=== PATIENT | male | born 1965 | race Caucasian/White ===

== ENCOUNTER 2020-02-05 09:12 | Emergency (ER) | payer SELFPAY ==
[2020-02-05 09:16] VITALS: BP 142/98; PULSE 90; RESP 18; TEMP 36.5; O2SAT 97; BMI 22.4
--- NOTE | 2020-02-05 09:21 | ED_ITS ---
HPI - Extremity Injury (Upper) General: Chief Complaint: Wound/Laceration Stated Complaint: r hand swelling Time Seen by Provider: 02/05/20 09:20 History of Present Illness: HPI narrative: 54-year-old male presents to the ER with complaint of right hand swelling. He is a swollen area at the third and fourth MP joints there is an eschar present at the center he states he did get the eschar off and get a little bit of clear serous-like drainage previously to been purulent. Is initially seen in [facility] emergency room and had an x- ray done there was told there is no fracture then he followed up 4 days later at urgent care and was given a shot of Rocephin and started on Bactrim. He initially did this 3 weeks ago. He was hit in the dorsum of the hand by the edge of a piece to lag iron that dropped. There was no concern for retained foreign body. He denies any fever sweats or chills is not otherwise been sick recently denies any respiratory symptoms MD complaint: injury to: left and hand Other injuries: none Handedness: right Place: work Severity: mild Relieving factors: cold therapy Exacerbating factors: movement of extremity Context: direct blow Associated symptoms: Reports no associated symptoms Review of Systems Const: Denies: fever(s), chills, body aches, change in appetite, fatigue or malaise ENMT: Denies: throat pain, ear or mastoid pain, nasal discharge or nasal congestion Card: Denies: chest pain, edema, dyspnea on exertion or orthopnea Resp: Denies: dyspnea, productive cough or non-productive cough GI: Denies: abdominal pain, nausea, vomiting, hematemesis, coffee ground emesis, diarrhea, constipation, bloating, hematochezia or melena : Denies: flank pain, dysuria, urinary frequency or urinary urgency Skin/Breast: Denies: rash or pruritus PFSH ED PFSH: Medical History (Updated 02/05/20 @ 13:03 by Jigar Kidd DO) No pertinent past medical history Surgical History (Updated 02/05/20 @ 13:03 by Jigar Kidd DO) Hx of appendectomy Social History (Updated 02/01/20 @ 11:54 by Sindy Ayala LPN) Smoking and tobacco status: current every day smoker Alcohol intake: current Physical Exam Const: COMMON NORMALS: no acute distress GENERAL APPEARANCE: cooperative and comfortable ORIENTATION/CONSCIOUSNESS: Yes awake, Yes oriented to person, Yes oriented to place and Yes oriented to time HENMT: COMMON NORMALS: normocephalic, atraumatic and hearing grossly normal bilaterally HEAD & SCALP: normocephalic and atraumatic Neck/C-Spine: COMMON NORMALS: no JVD Lymph: LYMPHATIC: no lymphadenopathy noted and no lymphedema noted Resp: COMMON NORMALS: normal respiratory effort, No retractions, No use of accessory muscles and clear to auscultation bilaterally AUSCULTATION: clear to auscultation bilaterally Cardio: COMMON NORMALS: no JVD, regular rate, regular rhythm and No murmurs present (Cardio) RATE: regular rate RHYTHM: regular rhythm GI: COMMON NORMALS: Soft to palpation and No hepatosplenomegaly present AUSCULTATION: Yes normoactive bowel sounds PALPATION: Yes Soft to palpation, No Tenderness to palpation present (GI), No Guarding due to palpation present (GI) and Yes No hepatosplenomegaly present Extremity: COMMON NORMALS: normal to inspection, capillary refill normal, no clubbing, cyanosis or edema, no calf tenderness and no pedal edema NARRATIVE EXTREMITY EXAM: Moderately swollen area on the dorsum of the hand at the third and fourth MP joints. There is no active drainage area was cleansed with alcohol wipes and then attempted to aspirate in the area the most obvious fl uctuance was not able to get any fluid back for culture. Neuro: SENSORIUM/ORIENTATION: Yes oriented to person, Yes oriented to place and Yes oriented to time Course Vital Signs: Vital signs: Vital Signs Temperature 97.7 F 02/05/20 09:16 Pulse Rate 83 02/05/20 11:47 Respiratory Rate 20 H 02/05/20 11:47 Blood Pressure 147/84 02/05/20 11:47 Pulse Oximetry 96 02/05/20 11:47 MDM - Extremity Injury (Upper) MDM Narrative: Medical decision making narrative: Continue Bactrim until gone if has any worsening or change symptoms follow-up use pain medications as needed. At this point does not look actively infected I think the Bactrim is taking care of it the drainage she has had is been serous I cannot really aspirate anything out of it and he has no axillary epitrochlear lymph nodes the CRP is slightly elevated I suspect that is inflammatory if he has worsening symptoms or drainage return Lab Data: Labs: Lab Results 02/05/20 02/05/20 Range/Units 10:08 10:08 WBC 7.9 (4.0-10.0) 10^3/ uL RBC 4.53 (4.1-5.3) 10^6/u L Hgb 13.6 (11.7-16.6) g/dL Hct 41.4 L (42.0-52.0) % MCV 91.4 (80-94) fL MCH 30.0 (28.0-34.0) pg MCHC 32.9 (30.0-36.0) g/dL RDW 15.3 H (12.1-15.1) % Plt Count 426 H (130-400) 10^3/c mm MPV 9.6 (7.4-10.4) fL Neut % (Auto) 70.1 % Lymph % (Auto) 18.5 % Morrow % (Auto) 8.9 % Eos % (Auto) 1.6 % Baso % (Auto) 0.5 % Neut # (Auto) 5.56 (1.8-7.7) 10^3/u L Lymph # (Auto) 1.5 (0.8-4.8) 10^3/u L Morrow # (Auto) 0.7 (0.2-0.9) 10^3/u L Eos # (Auto) 0.1 (0.0-0.8) 10^3/u L Baso # (Auto) 0.0 (0.0-0.1) 10^3/u L Nucleated RBC % (a uto) 0 % Nucleated RBCs # 0.0 /100WBC C-React Prot High Sens 2.910 H (0.0-0.3) mg/dL Discharge Plan Discharge Patient Disposition: Home Clinical Impression: Crush injury of hand Condition: Stable Prescriptions: New tramadol 50 mg tablet 50 mg PO Q6H PRN (Reason: pain) Qty: 20 RF: 0 No Action ibuprofen 200 mg Tablet 1,600 mg PO BID PRN (Reason: Pain) RF: 0 sulfamethoxazole-trimethoprim 800-160 mg tablet 1 tab PO BID RF: 0 Discharge Orders: Discharge Order (Routine); Ordered 02/05/20 Ordered By: Jigar Kidd Patient Instructions: Crush Injury, Wound Care (General) Activity Restrictions/Additional Instructions: Complete antibiotics previously prescribed. Use pain medications prescribed as needed follow-up with primary care doctor in the next 2 to 3 days sooner if you have any worsening problems. Return to the emergency room if you develop any fever or sudden change in swelling. Discharge Date/Time: 02/05/20 11:48 Coding Level of Care Code ED [employer] Attendant for Hamilton Neumann
--- NOTE | 2020-02-05 10:00 | XRR_ITS ---
PROCEDURE INFORMATION: Exam: XR Right Hand Exam date and time: 02/05/2020 10:20 AM Age: 54 years old Clinical indication: Pain; Swelling; Hand; Right; Additional info: Hand pain and swelling TECHNIQUE: Imaging protocol: XR Right hand. Views: 3 or more views. COMPARISON: No relevant prior studies available. FINDINGS: Bones/joints: No fracture. No dislocation. Mild degenerative changes. Soft tissues: There is nonspecific superficial soft tissue swelling involving the dorsum of the hand as indicated on the lateral view. No radiopaque soft tissue foreign body. XR/XR hand RT min 3V* [id number] IMPRESSION: 1. Nonspecific soft tissue swelling. 2. No acute osseous abnormality.
[2020-02-05 10:13] LABS: Basophils % 0.5 %; Eosinophils # 0.1 10^3/uL (0.0-0.8); Eosinophils % 1.6 %; Hematocrit 41.4 % (42.0-52.0); Hemoglobin 13.6 g/dL (11.7-16.6); Lymphocytes # 1.5 10^3/uL (0.8-4.8); Lymphocytes % 18.5 %; Mean Corpuscular HGB Conc 32.9 g/dL (30.0-36.0); Mean Corpuscular Volume 91.4 fL (80-94); Mean Platelet Volume 9.6 fL (7.4-10.4); Monocytes # 0.7 10^3/uL (0.2-0.9); Monocytes % 8.9 %; Neutrophils # 5.56 10^3/uL (1.8-7.7); Neutrophils % 70.1 %; Nucleated Red Blood Cells % 0 %; Platelet Count 426 10^3/cmm (130-400); Red Blood Count 4.53 10^6/uL (4.1-5.3); Red Cell Distribution Width 15.3 % (12.1-15.1); White Blood Count 7.9 10^3/uL (4.0-10.0)
[2020-02-05 11:47] VITALS: BP 147/84; PULSE 83; RESP 20; O2SAT 96
== END 2020-02-05 11:48 | disposition home or self-care (01) ==
PROVIDERS: Emergency Provider Family Medicine
DX: S67.21XA Crushing injury of right hand, initial encounter (principal); W23.0XXA Caught, crushed, jammed, or pinched between moving objects, initial encounter; F17.210 Nicotine dependence, cigarettes, uncomplicated
CPT/HCPCS: 12345; 36415; 73130; 85025; 86141; 99281; 99283

== ENCOUNTER 2021-09-18 11:44 | Outpatient (CLI) | payer OTHER, SELFPAY ==
--- NOTE | 2021-09-18 17:39 | ONC CON_ITS ---
Dr. Still New Patient Note Patient: Derek Tyler Unit #: [id number]: [id number] Dicatated By: Allen Still M.D.Date of Visit: Sep 18, 2021 Onc MED New Patient/Consult Referring Physician: Ignacio Yoon Chief Complaint: Esophageal cancer. 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 He had presented with difficulty swallowing which had progressively worsened over period of several months. He had surgical consultation with Dr. Ignacio Yoon on 08/07/2021. His EGD on 08/14/2021 showed what appeared to be a mass along the left anterior portion of the GE junction. Other findings included a hiatal hernia and duodenitis. Biopsies from the antrum and body of the stomach and the duodenal bulb were benign. Biopsy from the distal esophagus showed invasive moderately to poorly differentiated adenocarcinoma. The HER-2/ezequiel was negative (1+ by IHC). Staging PET/CT on 08/29/2021 showed FDG avid thickening of the distal esophageal wall up to 1.4 cm, maximal SUV 7.65. There was also marked increase of metabolic activity involving the gastric mucosa, SUV 6.88 and in a 1.5 cm gastrohepatic lymph node, SUV 6.67. A 1.5 cm right supraclavicular lymph node also had increased FDG activity with SUV 5.80 and a right hilar lymph node measuring 1.7 x 1.0 cm had increased activity with SUV 5.80. Pulmonary micronodules were felt to be indeterminate. There were extensive FDG avid lytic lesions in the right hemipelvis consistent with metastatic involvement. Incidentally noted was uptake in the left superior alveolar ridge with adjacent maxillary sinus inflammation, concerning for infection. He had medical oncology consultation with Dr. Joaquina Galicia on 09/03/2021. He was recommended to have a trial of systemic therapy with a chemotherapy/immunotherapy combination. He was scheduled for bone biopsy of the right pelvis and for placement of Port-A-Cath venous access device. Additional pathologic studies were requested, including PD-L1 expression and MSI testing, but those results have not been reported. The Port-A-Cath was placed earlier this week. His bone biopsy was positive for metastatic adenocarcinoma consistent with the esophageal primary. He is seen here today because he would prefer to get his treatment closer to home, if possible. He continues to have difficulty swallowing, severe enough that he is having to blend all of his food, as he can pretty much swallow only liquids now. His weight is down 15 pounds. He has had some decline in his energy, but he is still working and he has normal activity. ECOG score is 0. He has not had fever. He has had 1 or 2 episodes of night sweating. He does complain that he has an infected upper left tooth, and he has associated sinus congestion/headache. He does not have much cough, and he says his breathing is okay. He does not complain of chest pain. He does have nausea, but no vomiting. He has having pain in his epigastric area. Bowel and bladder function have been okay. He is having pain in the posterior right hip area. He also has pain in his right knee and right calf area. He does have chronic headache. He does not complain of dizziness. He is having some numbness in his fingertips. Past Medical History: He has a history of borderline diabetes and he has a history of COVID-19 virus infection in 2021. Past Surgical History: He underwent EGD with esophageal and gastric biopsies on 08/14/2021. His only other surgery was an appendectomy in 2011. Medications: Ibuprofen 3 Tablet (of 200 mg) Oral q 6 hours PRN Allergies: No Known Allergies. Social History: Mr. Tyler is . He has a history of smoking 2 packs of cigarettes daily for 40 years. Alcohol use reported at 4 beers daily. Family History: Father with prostate cancer at age 76. He also had polycythemia rubra vera. Mother with lung cancer at age 64. One brother and one sister are in good health. Review Of Symptoms: Constitutional - There has been some decline in his energy, but he is still working. He has limited oral intake, as always his food has to be blended so that he can drink it. His weight is down 15 pounds. He has not had fever. He has had 1 or 2 episodes of night sweating. ECOG score is 0, Eyes - No change in vision, ENMT - He has hearing loss. No tinnitus. He has sinus congestion and he has an infected upper tooth on the left side. He is not able to swallow solid foods, Hematologic/Lymphatic - No abnormal bruising but he says he bleeds like a stuck pig, Respiratory - He says his breathing is okay, and he does not have much cough. No pleuritic pain or hemoptysis, Cardiovascular - No angina pain. No palpitations, Gastrointestinal - He has nausea, but no vomiting. He has pain in the epigastric area. No diarrhea or constipation. No blood in the stool or black stools, Genitourinary (M) - No dysuria or hematuria. No urinary frequency. No urgency or incontinence, Musculoskeletal - He is having pain in the posterior right hip area and right leg. He also has pain in the right knee and sometimes in the right calf, Integumentary - No skin rash or other skin changes, Neurologic - He has chronic headache. No dizziness. He has numbness in his fingertips. No other focal neurologic symptoms, Psychiatric - No anxiety or depression. He is having difficulty sleeping. Vital Signs: Performed on Sep 18, 2021 12:58: 6, 5, 22.35, 1.96 sq.m, 72 in, 96 %, 85 /min, 18 /min, 107/72 mm(hg), 98.5 F, and 164.8 lbs (HIGH). Physical Examination: Constitutional - He looks pretty good generally, Eyes - Sclerae nonicteric. Conjunctivae clear, ENMT - There is an infected upper left molar tooth. There are no other lesions noted in the oral cavity, Neck - No mass or thyromegaly, Hematologic/Lymphatic - No cervical, clavicular, or axillary adenopathy, Respiratory - Lungs are clear with diminished air movement bilaterally, Cardiovascular - Heart rhythm is regular. There is no murmur, gallop, or rub noted, Abdomen - Soft with mild tenderness in the upper abdomen. Liver and spleen are not enlarged. There is no abdominal mass or ascites noted and there is no inguinal adenopathy, Back/Spine - No spine or CVA tenderness noted, Extremities - No edema. Posterior tibial pulses are palpable bilaterally, Integumentary - No rashes. No suspicious skin lesions noted, Neurologic - No focal neurologic deficits noted. Problem List: 1. 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 2. He has had borderline diabetes, diet controlled. 3. History of COVID-19 virus infection in June 2021. 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 His tumor was found to be negative for overexpression of HER-2/ezequiel. PD-L1 expression and MSI testing were requested, but those results have not been reported. The EGD and PET/CT findings and the biopsy results were reviewed with the patient and his family. We discussed the clinic complications. He is aware that he has cancer involving the distal esophagus and that it is metastatic, thus inoperable and incurable. With HER-2/ezequiel negative disease, the recommended treatment is a chemotherapy/immunotherapy combination, as noted by Dr. Galicia. My suggestion would be to use a modified FOLFOX chemotherapy regimen in combination with nivolumab on a 2-week dosing schedule. I again reviewed potential side effects with both the chemotherapy regimen and the immunotherapy. He will be scheduled to return for the first cycle of treatment subject to verification of insurance coverage. In addition, with the metastatic bone involvement, he will be recommended to begin monthly denosumab injections. I also will follow through with the additional pathology studies, which will include next generation sequencing along with PPD-L1 expression and MSI testing. In the meantime, he will be given prescriptions for Augmentin for the dental infection and he will start pantoprazole 40 mg daily. Signed By: Allen Still M.D. <<Signature on File>>
== END 2021-09-18 11:45 | disposition home or self-care (01) ==
PROVIDERS: Visit Provider Internal Medicine Medical Oncology
DX: C15.5 Malignant neoplasm of lower third of esophagus (principal); R73.03 Prediabetes; F17.210 Nicotine dependence, cigarettes, uncomplicated; Z79.899 Other long term (current) drug therapy; Z86.16 Personal history of COVID-19
CPT/HCPCS: 99205

== ENCOUNTER 2021-09-24 07:56 | Outpatient (CLI) | payer OTHER, SELFPAY ==
[2021-09-24 08:43] LABS: Basophils % 0.4 %; Eosinophils # 0.2 10^3/uL (0.0-0.8); Hematocrit 37.4 % (42.0-52.0); Hemoglobin 13.1 g/dL (11.7-16.6); Lymphocytes # 1.3 10^3/uL (0.8-4.8); Lymphocytes % 19.9 %; Mean Corpuscular Hemoglobin 35.2 pg (28.0-34.0); Mean Corpuscular Volume 100.5 fl (80-94); Mean Platelet Volume 9.6 fL (7.4-10.4); Monocytes # 0.7 10^3/uL (0.2-0.9); Neutrophils # 4.43 10^3/uL (1.8-7.7); Nucleated Red Blood Cells % 0 %; Platelet Count 317 10^3/cmm (130-400); Red Blood Count 3.72 10^6/uL (4.1-5.3); Red Cell Distribution Width 12.7 % (12.1-15.1); White Blood Count 6.7 10^3/uL (4.0-10.0)
[2021-09-24 08:56] LABS: Alanine Aminotransferase 12 U/L (0-41); Albumin Level 3.9 g/dL (3.5-5.2); Alkaline Phosphatase 77 IU/L (40-130); Anion Gap 14.3 (5-19); Aspartate Amino Transferase 11 U/L (0-40); Blood Urea Nitrogen 13 mg/dL (6-20); Calcium 9.1 mg/dL (8.5-10.5); Carbon Dioxide 24 mmol/L (22-29); Chloride 98 mmol/L (98-107); Globulin 2.3 g/dL (1.3-4.6); Glomerular Filtration Rate 171.4 mL/min (90-130); Glucose 96 mg/dL (65-115); Osmolality Calculated 274 mOsm/kg (285-295); Potassium 4.3 mmol/L (3.5-5.1); Sodium 132 mmol/L (136-145); Total Bilirubin 0.3 mg/dL (0.15-1.2); Total Protein 6.2 g/dL (6.6-8.7)
[2021-09-24 09:32] LABS: Hepatitis A Antibody IgM Non-Reactive (Nonreactive); Hepatitis B Core AB, Total Non-Reactive (Nonreactive); Hepatitis B Surface AB 3.5 (11.5-1000); Hepatitis B Surface Antigen Non-Reactive (Nonreactive); Hepatitis C Virus Antibody Non-Reactive (Nonreactive)
[2021-09-24] MEDS: sodium chloride 0.9% 250 ML 75 ML IV (10:30)
[2021-09-24] MEDS: dextrose 5% 250 ML 75 ML IV (10:30)
[2021-09-24] MEDS: palonosetron 0.25 mg/5 mL SDV IV (10:30)
[2021-09-24] MEDS: diphenhydrAMINE 50 mg/mL SDV 1mL 25 MG IV (10:30)
[2021-09-24] MEDS: denosumab 120 mg SDV SUBCUT (10:30)
[2021-09-24] MEDS: acetaminophen 325 mg Tablet 650 MG PO (10:30)
== END 2021-09-24 07:57 | disposition home or self-care (01) ==
PROVIDERS: Visit Provider Internal Medicine Medical Oncology
DX: Z51.12 Encounter for antineoplastic immunotherapy (principal); C15.5 Malignant neoplasm of lower third of esophagus; C79.51 Secondary malignant neoplasm of bone; R13.10 Dysphagia, unspecified; E11.9 Type 2 diabetes mellitus without complications; Z79.899 Other long term (current) drug therapy; Z86.16 Personal history of COVID-19; Z93.1 Gastrostomy status
CPT/HCPCS: 80053; 85025; 86705; 86706; 86709; 86803; 87340; 96367; 96368; 96372; 96375; 96409; 96411; 96413; 96415; 96417; J0640; J0897; J1100; J1200; J2469; J7050; J9190; J9263; J9299

== ENCOUNTER 2021-09-26 10:45 | Outpatient (CLI) | payer OTHER, SELFPAY | END 2021-09-26 10:46 | disposition home or self-care (01) | PROVIDERS: Visit Provider Internal Medicine Medical Oncology | DX: Z45.2 Encounter for adjustment and management of vascular access device (principal) | CPT/HCPCS: 36591 ==

== ENCOUNTER 2021-10-01 09:45 | Day surgery (SDC) | payer OTHER, SELFPAY ==
[2021-09-30 15:45] VITALS: BMI 20.3
[2021-10-01] VITALS (16 sets, daily range): BP systolic 127–165; BP diastolic 81–95; PULSE 61–98; RESP 12–33; TEMP 36.2–36.6; O2SAT 92–100
[2021-10-01] MEDS: sodium chloride 0.9% 1,000 ML 30 ML IV (10:25)
--- NOTE | 2021-10-01 10:35 | ANES.PREANE2 ---
Pre-Anesthetic Assessment Height/Weight: Height 1.83 m Weight 68.039 kg Preop Diagnosis: esophageal ca Operation Date: 10/01/21 11:15 Proposed Procedures p egd 81020/peg tube 84949/Esophageal cancer C15.9(Not Applicable) - Magdi Kemp MD s PEG Tube Exchange(Not Applicable) - Magdi Kemp MD s poss Laparoscopic PEG Tube Placement(Not Applicable) - Magdi Kemp MD Familial anesthetic complications: None Was Beta Jose taken within 24 hours: N/A Was Clonidine taken within 24 hours: N/A Last intake: Intake Last Liquid Date 09/30/21 Last Liquid Time 20:00 Last Solid Date 09/30/21 Last Solid Time 18:00 Social Tobacco and No alcohol Exam alert, oriented x 3, clear to auscultation bilaterally and regular rate & rhythm Airway Submandibular: within normal limits Cervical ROM: within normal limits Mallampati: Class II Dentition: chipped Comments: Comments: Missing teeth High arched palate History/ROS No significant complaints Pulmonary Weakness with exertion after chemo CV/HEM None reported METS = 4 None reported Hepatic None reported GI Esophageal cancer Metabolic None reported Musc/skel None reported Neuropsych None reported Anesthetic Plan ASA status: 3 Anesthesia: Anesthesia Evaluation and MAC Other: We discussed risk and benefits of general anesthesia including PONV, sore throat (sometimes severe), corneal abrasion, positioning and peripheral nerve injuries, life threatening allergic reaction, post operative ICU admission requiring prolonged intubation, stroke, heart attack, , and rare incidences of recall. I discussed with the patient risks, goals, and benefits of MAC and general anesthesia. We discussed spectrum of MAC anesthesia including conversion to general as well as possibility of recall of intraoperative stimuli including discomfort/pain. Patient agrees to proceed with MAC. Risk of > 500 ml blood loss (7ml/kg in children): No Medications/Allergies Home Medications Medication Instructions Recorded Confirmed Last Taken Type ibuprofen 200 mg tablet 1,600 mg PO BID PRN 02/05/20 10/01/21 09/30/21 History sulfamethoxazole 800 1 tab PO BID 02/05/20 09/30/21 02/05/20 History mg-trimethoprim 160 mg tablet tramadol 50 mg tablet 50 mg PO Q6H PRN #20 tab 02/05/20 10/01/21 Unknown Rx morphine 10 mg/5 mL oral solution 5 mg PO Q4H PRN 09/30/21 09/30/21 Unknown History oxycodone 5 mg capsule 5 mg PO BID PRN 09/30/21 09/30/21 Unknown History pantoprazole 20 mg tablet,delayed 20 mg PO DAILY 09/30/21 09/30/21 Unknown History release (Protonix) prochlorperazine maleate 10 mg 10 mg PO Q4-5H PRN 10/01/21 10/01/21 09/30/21 History tablet (Compazine) Allergies Allergy/AdvReac Type Severity Reaction Status Date / Time No Known Allergies Allergy Verified 10/01/21 09:57 Current Medications Generic Name Dose Route Start Last Admin Trade Name Freq PRN Reason Stop Dose Admin Sodium Chloride 1,000 mls @ 30 mls/hr 10/01/21 10:15 10/01/21 10:25 Sodium Chloride 0.9% IV 10/02/21 10:14 30 mls/hr .Q24H EMELI Administration PFSH Anesthesia Medical History Esophageal cancer Surgical History Hx of appendectomy Social History Smoking and tobacco status: current every day smoker Alcohol intake: current Data Anesthesia Cardiac Studies: No Data to Display
[2021-10-01] MEDS: scopolamine 1.5 Patch 1 PATCH TRANSDERMA (10:41)
--- NOTE | 2021-10-01 10:51 | W.PM.OPSUD ---
Surgery/Procedure H&P Update DATE OF PROCEDURE: October 01, 2021 DATE H&P PERFORMED: 09/30/21 H&P UPDATE INFORMATION: I have reviewed H&P completed within last 30 days, I have examined patient prior to procedure and No changes to prior documentation PREOP DIAGNOSIS: esophageal ca PLANNED PROCEDURE: Operation Date: 10/01/21 11:15 Proposed Procedures p egd 42541/peg tube 27198/Esophageal cancer C15.9(Not Applicable) - Magdi Kemp MD s PEG Tube Exchange(Not Applicable) - Magdi Kemp MD s poss Laparoscopic PEG Tube Placement(Not Applicable) - Magdi Kemp MD
--- NOTE | 2021-10-01 13:06 | P.OP_ITS ---
Operative Report Date of procedure: October 01, 2021 Pre-op diagnosis: Metastatic esophageal cancer causing esophageal obstruction Post-op diagnosis: Obstructing esophageal cancer and GE junction beyond which the gastroscope could not be passed No evidence of liver metastasis or peritoneal carcinomatosis Procedure done: 1. Esophagoscopy 2. Laparoscopic placement of 22 [place] gastrostomy tube Pathology: none sent Surgeon: Magdi Kemp Anesthesia: General Condition: stable Disposition: PACU Procedure: The patient was taken to the operating room and intubated under general anesthes ia after IV antibiotic had been administered. The abdomen was prepped and draped in sterile manner. A bite block was placed and the gastroscope was introduced and advanced into the esophagus. At the GE junction there was an obstructing esophageal cancer noted beyond which the gastroscope could not be advanced. The stomach was filled with air using the gastroscope. Using a 15 blade infraumbilical curvilinear incision was made and using open Valladares technique the peritoneal cavity was entered and a 10 mm port was placed and 15 mm of pneumoperitoneum was created. A 10 mm 30 degree scope was introduced. The site for the planned gastrostomy tube was marked in the left upper quadrant. 4 separate T-fasteners were deployed to pull the anterior gastric wall against the abdominal wall. An introducer needle was passed through the abdominal wall between the T-fasteners into the gastric lumen, guidewire was passed and the introducer needle was removed. A dilator sheath was passed over the guidewire after the skin incision was extended using 11 blade and the inner dilator was removed. A 22 [place] gastrostomy tube was introduced into the gastric lumen as the peel-away sheath was removed and the balloon was inflated with 7 cc of saline. The T-fasteners were tightened against the skin using hemostats. The outer disc on the gastrostomy was sutured to the skin using 3-0 Prolene suture. The 10 mm port was removed and the fascia was closed using [id number] 0 Vicryl suture, subcutaneous tissues approximated using 3-0 Vicryl suture and skin was closed using running subcuticular 4-0 Monocryl suture and Dermabond. 10 cc of 0.5% Marcaine was infiltrated at the surgical site. The patient was extubated and transferred recovery room in stable condition.
--- NOTE | 2021-10-01 13:14 | SUR.PHASEI ---
1308 PT TO PACU 5 PT AWAKES , ORAL AIRWAY OUT, PT DOES NOT VERBALLY RESPOND, QUICKLY BACK TO SLEEP VSS ABDOMEN IS SOFT WITH PEG TUBE STITCHED IN PLACE AND UNCLAMPED WITH END OF TUBE IN GLOVE, BILAT SCDS ON.
[2021-10-01] MEDS: fentaNYL 50 mcg/mL INJ 2mL IVP ×2 (13:22→13:43)
--- NOTE | 2021-10-01 13:35 | ANE.PACU2 ---
Inpatient post-anesthesia follow up: Airway intact: Yes Vital signs: Temperature 97.2 F Pulse Rate 83 Respiratory Rate 21 Blood Pressure 145/88 Pulse Oximetry 98 Oxygen Delivery Me thod Simple Mask Oxygen Flow Rate 6 Fraction of Inspir ed Oxygen Hydration adequate: Yes Nausea and vomiting: No Pain level: 2 Mental status: Baseline
--- NOTE | 2021-10-01 13:49 | SUR.PHASEI ---
PT STATES PAIN IS BETTER, NOW, TUBE PULLS WITH ANY PATIENT MOVEMENT, TAPE APPLIED TO PEG TO SECURE IT TO SKIN SO THAT THE STITCHED AREA DOES NOT PULL. SEE EARLIER PAIN MEDS GIVEN.
== END 2021-10-01 14:45 | disposition home or self-care (01) ==
PROVIDERS: Visit Provider Surgery
PROC: 0DJ08ZZ Inspection of Upper Intestinal Tract, Via Natural or Artificial Opening Endoscopic (ICD-10-PCS; CPT 43235; principal; 2021-10-01 11:15)
PROC: (CPT 43246; 2021-10-01 11:15)
DX: C15.9 Malignant neoplasm of esophagus, unspecified (principal); C79.9 Secondary malignant neoplasm of unspecified site; Z92.21 Personal history of antineoplastic chemotherapy; F17.210 Nicotine dependence, cigarettes, uncomplicated; Q42.8 Congenital absence, atresia and stenosis of other parts of large intestine
CPT/HCPCS: 43246; J0690; J1100; J2405; J2704; J3010; J3490; J7030

== ENCOUNTER 2021-10-03 09:09 | Outpatient (CLI) | payer OTHER, SELFPAY ==
--- NOTE | 2021-10-03 09:37 | XR_ITS ---
WS: [id number] XR KUB [id number] REASON FOR EXAM: Z93.4 - Other artificial openings of gastrointestinal tra... FINDINGS: Large bore tubing overlying the left abdomen with the tip in the left epigastric region. Bowel gas pattern is unremarkable. Gas/air lucencies projected over the right upper quadrant. Similar lucencies are seen in the lateral left abdomen which may be in part within the abdominal wall. Similar but more equivocal lucencies are seen underlying the left hemidiaphragm. No urinary tract calculi. No mass identified. XR/XR KUB [id number] IMPRESSION: Large bore tubing overlying the abdomen. Gas/air lucencies that do not appear t o be contained within bowel as above. By history there was gastrostomy tube placement 2 days ago. The findings are co mpatible with expected postprocedure changes 2 days post procedure.
--- NOTE | 2021-10-03 11:35 | IR_ITS ---
WS: [id number] IR [place]dc [place] [id number] REASON FOR EXAM: G TUBE DYSFUNCTION/DYE INJECTION TO CHECK PEG TUBE FLUOROSCOPY TIME: 1min [id number] # OF SPOT FILMS: 2 FINDINGS: Small amount of water-soluble contrast was injected through the gastrostomy tube under fluoroscopic c ontrol. The contrast that exited the tube tip did not define the lumen of stomach and the contrast co llection was irregular and contained, suggesting is within the abdominal wall. The contrast could not be aspirated back through the gastrostomy tube. IR/IR contrast inj gjdc tub [id number] IMPRESSION: Displaced gastrostomy tube as above.
[2021-10-03] MEDS: diatrizoate meglumine 30 mL Sol XX (12:10)
== END 2021-10-03 09:10 | disposition home or self-care (01) ==
LOC: RAD 09:11
PROVIDERS: Visit Provider Surgery
DX: Z93.4 Other artificial openings of gastrointestinal tract status (principal)
CPT/HCPCS: 49465; 74018

== ENCOUNTER 2021-10-03 13:29 | Day surgery (SDC) | payer OTHER, SELFPAY ==
[2021-10-03] VITALS (17 sets, daily range): BP systolic 119–156; BP diastolic 64–108; PULSE 62–90; RESP 15–24; TEMP 36.2–36.6; O2SAT 94–100; BMI 18.6
--- NOTE | 2021-10-03 14:09 | ANES.PREANE2 ---
Pre-Anesthetic Assessment Height/Weight: Height 1.88 m Weight 65.771 kg Temp Pulse Resp BP Pulse Ox 97.8 F 62 18 119/70 94 10/03/21 13:48 10/03/21 13:48 10/03/21 13:48 10/03/21 13:48 10/03/21 13:48 Preop Diagnosis: esophageal ca Operation Date: 10/03/21 14:15 Proposed Procedures p Gastric Tube Insertion 91122/(Not Applicable) - Magdi Kemp MD Familial anesthetic complications: None Was Beta Jose taken within 24 hours: N/A Was Clonidine taken within 24 hours: N/A Last intake: Intake Last Liquid Date 10/03/21 Last Liquid Time 11:30 Last Solid Date 09/29/21 Last Solid Time 19:00 Social No alcohol and No tobacco Exam alert, oriented x 3, clear to auscultation bilaterally and regular rate & rhythm Airway Mallampati: Class II Dentition: chipped GI esophageal cancer Anesthetic Plan ASA status: 3 Anesthesia: General Risk of > 500 ml blood loss (7ml/kg in children): No Medications/Allergies Home Medications Medication Instructions Recorded Confirmed Last Taken Type ibuprofen 200 mg tablet 1,600 mg PO BID PRN 02/05/20 10/03/21 10/03/21 History sulfamethoxazole 800 1 tab PO BID 02/05/20 10/03/21 09/29/21 History mg-trimethoprim 160 mg tablet morphine 10 mg/5 mL oral solution 5 mg PO Q4H PRN 09/30/21 10/03/21 10/02/21 History pantoprazole 20 mg tablet,delayed 20 mg PO DAILY 09/30/21 10/03/21 10/01/21 History release (Protonix) prochlorperazine maleate 10 mg 10 mg PO Q4-5H PRN 10/01/21 10/03/21 09/30/21 History tablet (Compazine) Allergies Allergy/AdvReac Type Severity Reaction Status Date / Time No Known Allergies Allergy Verified 10/03/21 13:39 [facility] Anesthesia Medical History Esophageal cancer Surgical History Hx of appendectomy S/P percutaneous endoscopic gastrostomy (PEG) tube placement (10/01/21) laparoscopic gastrostomy Social History Smoking and tobacco status: current every day smoker Alcohol intake: current Data Anesthesia Cardiac Studies: No Data to Display
[2021-10-03] MEDS: sodium chloride 0.9% 1,000 ML 30 ML IV (14:10)
--- NOTE | 2021-10-03 14:15 | P.HP_ITS ---
Same Day Surgery H&P Indication for Procedure/HPI DATE OF PROCEDURE: October 03, 2021 CHIEF COMPLAINT/INDICATIONFOR SURGICAL PROCEDURE: open gastrostomy tube placement PREOP DIAGNOSIS: esophageal ca PLANNED PROCEDURE: Operation Date: 10/03/21 14:15 Proposed Procedures p Gastric Tube Insertion 13979/(Not Applicable) - Magdi Kemp MD Medications/Allergies* Home Medications Medication Instructions Recorded Confirmed Type ibuprofen 200 mg tablet 1,600 mg PO BID PRN 02/05/20 10/03/21 History sulfamethoxazole 800 1 tab PO BID 02/05/20 10/03/21 History mg-trimethoprim 160 mg tablet morphine 10 mg/5 mL oral solution 5 mg PO Q4H PRN 09/30/21 10/03/21 History pantoprazole 20 mg tablet,delayed 20 mg PO DAILY 09/30/21 10/03/21 History release (Protonix) prochlorperazine maleate 10 mg 10 mg PO Q4-5H PRN 10/01/21 10/03/21 History tablet (Compazine) Allergies/Adverse Reactions Allergy/AdvReac Type Severity Reaction Status Date / Time No Known Allergies Allergy Verified 10/03/21 13:39 Pertinent History/Comorbid Conditions* Medical History (Updated 09/30/21 @ 13:58 by Magdi Kemp MD) Esophageal cancer Surgical History (Updated 10/01/21 @ 13:00 by Magdi Kemp MD) Hx of appendectomy S/P percutaneous endoscopic gastrostomy (PEG) tube placement (10/01/21) laparoscopic gastrostomy Social History Smoking and tobacco status: current every day smoker Alcohol intake: current Pertinent Exam Findings alert, oriented x 3 and regular rate & rhythm Recommendations Surgery/Procedure today Coding Level of Care Code Acute Customer Care Voice Consultant for Hamilton Neumann
--- NOTE | 2021-10-03 15:15 | P.OP_ITS ---
Operative Report Date of procedure: October 03, 2021 Pre-op diagnosis: Obstructing esophageal cancer status post laparoscopic gastrostomy tube placement G-tube study showing nonfunctioning gastrostomy tube within the subcutaneous tissue Post-op diagnosis: Gastrostomy tube within the subcutaneous space with the balloon deflated suggesting that the balloon might have punctured during placement or deflated due to malfunction. No significant peritoneal contamination and the gastrostomy site on the anterior gastric wall had sealed Procedure done: Open gastrostomy tube placement Pathology: none sent Surgeon: Magdi Kemp Anesthesia: General Condition: stable Disposition: PACU Brief History: This is a 56-year-old male who has dysphagia from obstructing esophageal cancer and underwent laparoscopic gastrostomy tube placement due to inability to pass the gastroscope beyond the malignancy at the GE junction. Patient did well postop but subsequently the following day the tube could not be flushed and the patient experienced severe pain. He could not come the next day and therefore he came to the clinic 2 days later where he underwent a G-tube study which showed the catheter tip in the subcutaneous tissue. Patient did not have any evidence of peritonitis and was hemodynamically stable. Procedure: The patient was taken to the operating room and intubated under general anesthesia after IV antibiotic had been administered. The abdomen was prepped and draped in a sterile manner. Using a 15 blade a midline laparotomy incision was made, subcutaneous tissue and linea alba was divided to enter the peritoneal cavity. There was no significant pneumoperitoneum or gross contamination noted in the peritoneal cavity. Examination of the anterior wall of the stomach revealed that the gastrostomy site had sealed and the tip of the catheter was in the subcutaneous space. The balloon on the catheter was deflated suggesting that the balloon may have punctured. The site for the planned gastrostomy tube was marked on the antrum of the stomach and multiple interrupted 2-0 Vicryl sutures were placed to approximate the anterior gastric wall to the abdominal wall. A stab incision was made using a 15 blade in the left upper quadrant of the abdomen and the 22 Occitan gastrostomy tube was passed into the peritoneal cavity. A gastrostomy was created at the previously marked site on the antrum and the 22 Occitan gastrostomy tube was introduced and balloon insufflated with 7 cc of saline. The 2-0 silk sutures were tied down. The peritoneal cavity was irrigated with saline and the fascia was closed using #1 looped PDS, subcutaneous was approximate using interrupted 3-0 Vicryl suture and skin was closed using a running subcuticular 4-0 Monocryl suture and Dermabond. The disc on the catheter was sutured to the skin using interrupted 3-0 Prolene suture. The patient was extubated and transferred to recovery room in stable condition.
--- NOTE | 2021-10-03 15:21 | PC.NURSE ---
ORIGINAL PEG TUBE REMOVED BY DR CARVAJAL WITH TIP INTACT (BALLOON WAS DEFLATED BEFORE HE REMOVED IT)
[2021-10-03] MEDS: HYDROmorphone 1 mg/mL INJ 1 mL IVP (15:29)
[2021-10-03] MEDS: HYDROmorphone 1 mg/mL INJ 1 mL 0.5 MG IVP (15:43)
--- NOTE | 2021-10-03 15:45 | SUR.PHASEI ---
15:17 received patient from or staff. patient with c/o abdomen pain. medicated per plasterer rough. airway patent.
--- NOTE | 2021-10-03 15:50 | SUR.PHASEI ---
15:43 remedicated for abdomen pain.
--- NOTE | 2021-10-03 15:55 | SUR.PHASEI ---
patient responds to verbal. states moderate relief of abdomen pain. placed on O2. ventilating well.
--- NOTE | 2021-10-03 15:58 | SUR.PHASEI ---
nsr on monitor.
--- NOTE | 2021-10-04 07:21 | ANE.PACU2 ---
Inpatient post-anesthesia follow up: Airway intact: Yes Vital signs: Temperature 97.6 F Pulse Rate 73 Respiratory Rate 16 Blood Pressure 137/64 Pulse Oximetry 98 Oxygen Delivery Me thod Room Air Oxygen Flow Rate 2 Fraction of Inspir ed Oxygen Hydration adequate: Yes Nausea and vomiting: No Pain level: 1 Mental status: Baseline
== END 2021-10-03 17:15 | disposition home or self-care (01) ==
PROVIDERS: Visit Provider Surgery
PROC: (CPT 43830; principal; 2021-10-03 14:15)
DX: K94.23 Gastrostomy malfunction (principal); Z85.01 Personal history of malignant neoplasm of esophagus; F17.210 Nicotine dependence, cigarettes, uncomplicated
CPT/HCPCS: 43830; J0690; J1100; J1170; J2405; J2704; J2710; J3010; J3490; J7030

== ENCOUNTER 2021-10-05 15:40 | Emergency (ER) | payer OTHER, SELFPAY ==
[2021-10-05 15:58] VITALS: BP 103/72; PULSE 73; RESP 16; TEMP 36.9; O2SAT 97; BMI 20.3
--- NOTE | 2021-10-05 16:26 | XRR_ITS ---
PROCEDURE INFORMATION: Exam: XR Chest Exam date and time: 10/05/2021 4:44 PM Age: 56 years old Clinical indication: Pain; Chest pressure; Prior surgery; Surgery date: Post-operative (0-2 days); Surgery type: Fedding tube; Additional info: Chest pain TECHNIQUE: Imaging protocol: XR of the chest. Views: 1 view. COMPARISON: CR XR KUB [id number] 10/03/2021 9:54 AM FINDINGS: Tubes, catheters and devices: Right subclavian Port-A-Cath with the tip at the cavoatrial junction. Lungs: Calcified granuloma in the right upper lobe. Lungs are clear bilaterally. Pleural spaces: No pleural effusion. No pneumothorax. Heart/Mediastinum: The cardiac silhouette and mediastinal contours are unremarkable. Bones/joints: Unremarkable for age. Intraperitoneal space: Foci of free air under the right hemidiaphragm and in the midline of the abdomen. XR/XR chest 1V portable [id number] IMPRESSION: 1. Foci of free air under the right hemidiaphragm and in the midline of the abdomen. Findings could be due to recent percutaneous gastrostomy tube placement versus leak around the gastrostomy tube, possible bowel perforation cannot be ruled out. Recommend clinical correlation. Please refer to dictation for CT scan of the abdomen/pelvis dated 10/05/2021 for full description of these findings. 2. No acute cardiopulmonary process. 3. Incidental/nonacute findings are listed in the report. COMMENTS: Urgent results were discussed with DANITA Mathias on 10/05/2021 at 5:12 PM CDT.
--- NOTE | 2021-10-05 16:27 | ECG_ITS ---
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 Measurements Intervals [place] Rate: 56 P: 36 RI: 107 QRS: 51 QRSD: 110 T: 62 QT: 415 QTc: 401 Interpretive Statements SINUS BRADYCARDIA WITH SHORT RI INTERVAL INCOMPLETE RIGHT BUNDLE BRANCH BLOCK [90+ ms QRS DURATION, TERMINAL R IN V1/V2, 40+ ms S IN I/aVL/V4/V5/V6] No previous ECG available for comparison Electronically Signed On 10-05-2021 22:01:55 CDT by John Abreu M.D. [email or web address]
--- NOTE | 2021-10-05 16:28 | ED_ITS ---
HPI - General Adult General: Chief complaint: Weakness Stated complaint: abdomen pain, cancer patient, dehydration Time Seen by Provider: 10/05/21 16:08 History of Present Illness: Patient is a 56-year-old male with a history of metastatic adenocarcinoma currently on chemotherapy (on chemotherapy was 10 days ago) followed by Dr. Still presenting to the emergency room for concerns of dehydration inability to tolerate p.o. 5 days ago, patient underwent PEG tube placement that was later revised 3 days ago. History was the first the patient was able to get Ensure feeds through his G-tube. Patient says that he has not been able to tolerate anything by mouth due to the adenocarcinoma in his esophagus. Patient says that he is able to swallow small amount of liquid. Patient denies any fever/chills, abdominal complaints, signs of infection on the incision site, diarrhea melena hematochezia. Patient says that he has had decreased stooling and decreased appetite since he started chemotherapy. Patient reports generalized weakness for the last week. Onset: 10 days ago Duration:10 days Location:home Severity:moderate Associated symptoms: Reports malaise; Deny chest pain, dyspnea, nausea, rash, palpitations or vomiting Review of Systems Const: Reports: change in appetite and malaise; Denies: fever(s) or chills Eyes: Denies: change in vision ENMT: Denies: mouth pain Card: Denies: chest pain or palpitations Resp: Denies: dyspnea or non-productive cough GI: Reports: other (+decreased appetite); Denies: abdominal pain, nausea, vomiting or diarrhea : Denies: dysuria Musc: Denies: extremity pain Skin/Breast: Denies: rash or new lesions Neuro: Denies: weakness in extremities Psych: Reports: other (Normal mood) Angel/Lymph: Denies: easy bruising PFSH ED PFSH: Medical History Esophageal cancer Surgical History Hx of appendectomy S/P percutaneous endoscopic gastrostomy (PEG) tube placement (10/01/21) laparoscopic gastrostomy open gastrostomy tube placement 10/03/2021 Social History Smoking and tobacco status: current every day smoker Alcohol intake: current Physical Exam Const: COMMON NORMALS: alert HENMT: COMMON NORMALS: atraumatic HEAD & SCALP: atraumatic MOUTH: moist mucous membranes abnormal Eye: COMMON NORMALS: EOMs intact bilaterally and conjunctivae normal CONJUNCTIVA: Yes conjunctivae normal Neck/C-Spine: COMMON NORMALS: full ROM and supple Resp: COMMON NORMALS: normal respiratory effort and clear to auscultation bilaterally AUSCULTATION: clear to auscultation bilaterally Cardio: COMMON NORMALS: regular rate RATE: regular rate GI: COMMON NORMALS: Soft to palpation and non-tender PALPATION: Yes Soft to palpation OTHER: No focal TTP. NO guarding rebound, guarding, rigidity. No CVA tenderness to percussion. Neg Pelayo/Neg McBurney's point tenderness, no suprabupic tenderness to palpation. + Surgical incision site dry clean intact, G-tube exit site dry/clean/intact Extremity: COMMON NORMALS: full ROM Neuro: SENSORIUM/ORIENTATION: Yes alert MOTOR EXAM: No Abnormal motor strength present and Other motor observations present (no focal motor deficits) Psych: COMMON NORMALS: speech normal SPEECH: Yes normal speech MOOD & AFFECT: Yes euthymic mood Course Vital Signs: Vital signs: Vital Signs Temperature 98.4 F 10/05/21 15:58 Pulse Rate 82 10/05/21 19:58 Respiratory Rate 16 10/05/21 19:58 Blood Pressure 110/76 10/05/21 19:58 Pulse Oximetry 97 10/05/21 19:58 MDM - General Adult Medical Decision Making 56-year-old male with a history of recent G-tube placement, currently on chemotherapy for esophageal adenocarcinoma presenting to the emergency room for evaluation of dehydration, generalized weakness, and decreased appetite. Lab work-up largely within normal limit. Sodium of 134. Patient had 1+ ketones in the urine. Patient received 2 L of fluid, G-tube appears to be intact. CT abdomen pelvis was performed given surrounding edema. Patient was noted to have intra-abdominal air. I discussed case with the radiologist who does not think that this is perforated bowel. I discussed case with Dr. Valladares who recommended that I touch base with Dr. Kemp. Have discussed with Dr. Kemp. Given the fact the patient has been having recent open abdominal surgery 2 days ago, is currently afebrile, no focal abdominal pain, white count 7.3, Dr. Kemp does not suspect perforated bowel. Patient received 2 L of fluid G-tube appears to be full functioning. I have instructed family to continue increasing feeds from the G-tube. Patient is due to follow-up with Dr. Still on Wednesday to reassess to determine whether patient is a candidate for therapy. Family is aware of the plan for aggressive hydration. I have given family strict return precaution any signs of dehydration, weakness, fever/chills, abdominal pain, any complication from the G-tube or any new concerning complaints. Disposition: Discharge. Patient counseled regarding diagnostic impression, treatment plan. Patient given ED strict return precautions to return for continuation, worsening, or development of new symptoms. Instructed to f/u w/ Dr. Still and Dr. Kemp regarding symptoms today. Patient verbalized understanding. Lab Data : 10/05/21 16:58 10/05/21 16:58 Radiology Impressions Chest X-Ray 10/05/21 16:26 IMPRESSION: 1. Foci of free air under the right hemidiaphragm and in the midline of the abdomen. Findings could be due to recent percutaneous gastrostomy tube placement versus leak around the gastrostomy tube, possible bowel perforation cannot be ruled out. Recommend clinical correlation. Please refer to dictation for CT scan of the abdomen/pelvis dated 10/05/2021 for full description of these findings. 2. No acute cardiopulmonary process. 3. Incidental/nonacute findings are listed in the report. COMMENTS: Urgent results were discussed with DELFINA Mathias on 10/05/2021 at 5:12 PM CDT. Abdomen/Pelvis CT 10/05/21 16:27 IMPRESSION: 1. There is a percutaneous gastrostomy tube in the body of the stomach. There is a large amount of free intraperitoneal air in the upper abdomen. This may be due to recent percutaneous gastrostomy tube placement. Possible bowel perforation is considered less likely but not completely ruled out. Recommend clinical correlation 2. Extensive subcutaneous emphysema anteriorly over the abdomen and mild subcutaneous emphysema in the upper left rectus muscle. This is likely due to recent percutaneous gastrostomy tube placement. 3. Stable indeterminate focus in the right adrenal gland compared with 08/29/2021. Recommend attention to this area on previous imaging studies has a metastatic focus cannot be ruled out. 4. Stable enlarged gastrohepatic ligament lymph node suspicious for a metastatic focus. 5. Multiple metastatic lesions in the right iliac bone are stable. 6. Incidental/nonacute findings are listed in the report. ADDENDUM: 10/05/21 0376 Please note the correction to the 1st impression in the original report: There is a percutaneous gastrostomy tube in the body of the stomach. There is a large amount of free intraperitoneal air in the upper abdomen. This may be due to recent percutaneous gastrostomy tube placement versus a leak around the PEG tube. Possible bowel perforation is considered less likely but not completely ruled out. Recommend clinical correlation. THIS REPORT CONTAINS FINDINGS THAT MAY BE CRITICAL TO PATIENT CARE. The findings were verbally communicated via telephone conference with DELFINA Mathias at 5:11 PM CDT on 10/05/2021. The findings were acknowledged and understood. Laboratory Results WBC 7.3 10^3/uL (4.0-10.0) 10/05/21 16:58 RBC 3.62 10^6/uL (4.1-5.3) L 10/05/21 16:58 Hgb 12.6 g/dL (11.7-16.6) 10/05/21 16:58 Hct 36.5 % (42.0-52.0) L 10/05/21 16:58 MCV 100.8 fl (80-94) H 10/05/21 16:58 MCH 34.8 pg (28.0-34.0) H 10/05/21 16:58 MCHC 34.5 g/dL (30.0-36.0) 10/05/21 16:58 RDW 12.6 % (12.1-15.1) 10/05/21 16:58 Plt Count 259 10^3/cmm (130-400) 10/05/21 16:58 MPV 9.7 fL (7.4-10.4) 10/05/21 16:58 Neut % (Auto) 74.9 % 10/05/21 16:58 Lymph % (Auto) 13.8 % 10/05/21 16:58 [place] % (Auto) 8.9 % 10/05/21 16:58 Eos % (Auto) 1.8 % 10/05/21 16:58 Baso % (Auto) 0.3 % 10/05/21 16:58 Neut # (Auto) 5.48 10^3/uL (1.8-7.7) 10/05/21 16:58 Lymph # (Auto) 1.0 10^3/uL (0.8-4.8) 10/05/21 16:58 [place] # (Auto) 0.7 10^3/uL (0.2-0.9) 10/05/21 16:58 Eos # (Auto) 0.1 10^3/uL (0.0-0.8) 10/05/21 16:58 Baso # (Auto) 0.0 10^3/uL (0.0-0.1) 10/05/21 16:58 Nucleated RBC % (auto) 0 % 10/05/21 16:58 Nucleated RBCs # 0.0 /100WBC 10/05/21 16:58 Sodium 134 mmol/L (136-145) L 10/05/21 16:58 Potassium 4.1 mmol/L (3.5-5.1) 10/05/21 16:58 Chloride 99 mmol/L (98-107) 10/05/21 16:58 Carbon Dioxide 27 mmol/L (22-29) 10/05/21 16:58 Anion Gap 12.1 (5-19) 10/05/21 16:58 BUN 22 mg/dL (6-20) H 10/05/21 16:58 Creatinine 0.6 mg/dL (0.7-1.2) L 10/05/21 16:58 GFR Calculation 138.9 mL/min (90-130) H 10/05/21 16:58 Glucose 126 mg/dL (65-115) H 10/05/21 16:58 Calculated Osmolality 283 mOsm/kg (285-295) L 10/05/21 16:58 Lactate 0.9 mmol/L (0.5-2.2) 10/05/21 17:55 Calcium 8.4 mg/dL (8.5-10.5) L 10/05/21 16:58 Total Bilirubin 0.2 mg/dL (0.15-1.2) 10/05/21 16:58 AST 12 U/L (0-40) 10/05/21 16:58 ALT 10 U/L (0-41) 10/05/21 16:58 Alkaline Phosphatase 87 IU/L (40-130) 10/05/21 16:58 Troponin T Baseline 6 ng/L (0-15) 10/05/21 16:58 Troponin T 120 Minute 7.16 ng/L (0-15) 10/05/21 19:05 Delta Troponin T Not Reportable 10/05/21 19:05 Total Protein 6.8 g/dL (6.6-8.7) 10/05/21 16:58 Albumin 3.7 g/dL (3.5-5.2) 10/05/21 16:58 Globulin 3.1 g/dL (1.3-4.6) 10/05/21 16:58 Lipase 20 U/L (13-60) 10/05/21 16:58 Urine Color Yellow (Yellow) 10/05/21 19:00 Urine Appearance Clear (CLEAR) 10/05/21 19:00 Urine pH 7 (5-7) 10/05/21 19:00 Ur Specific [place] 1.010 (1.005-1.030) 10/05/21 19:00 Urine Protein Neg (Negative) 10/05/21 19:00 Urine Glucose (UA) Norm (Normal) 10/05/21 19:00 Urine Ketones 1+ (Negative) H 10/05/21 19:00 Urine Blood Neg (Negative) 10/05/21 19:00 Urine Nitrate Negative (Negative) 10/05/21 19:00 Urine Bilirubin Neg (Negative) 10/05/21 19:00 Urine Urobilinogen Norm mg/dL (Negative) 10/05/21 19:00 Ur Leukocyte Esterase Negative (Negative) 10/05/21 19:00 Imaging Data Other Imaging: Radiologist's impression: [address] [address] [address] Scan Report Signed with Addenda Patient: Derek Tyler Unit #: [id number] : 1965 Age/Sex: 56 / M ADM Date: 10/05/21 Loc: ER Room/Bed: Attending Dr: Ordering Provider/Ordering MD: eDlfina Tolliver MD Date of Service: 10/05/21 Procedure(s): CT abdomen pelvis wo con [id number] Accession Number(s): [id number] Report Number: [id number]/CT abdomen pelvis wo con [id number] Please note the correction to the 1st impression in the original report: ? There is a percutaneous gastrostomy tube in the body of the stomach. There is a large amount of free intraperitoneal air in the upper abdomen. This may be due to recent percutaneous gastrostomy tube placement versus a leak around the PEG tube. Possible bowel perforation is considered less likely but not completely ruled out. Recommend clinical correlation. ? THIS REPORT CONTAINS FINDINGS THAT MAY BE CRITICAL TO PATIENT CARE. The findings were verbally communicated via telephone conference with DELFINA Mathias at 5:11 PM CDT on 10/05/2021. The findings were acknowledged and understood. ? Addendum Dictated By: ?Jazmin Goyal MD Addendum Signed By: ?Jazmin Goyal MD Signed Date/Time: 10/05/21 1714 Addendum Cosigned By: ? PROCEDURE INFORMATION: Exam: CT Abdomen And Pelvis Without Contrast Exam date and time: 10/05/2021 4:44 PM Age: 56 years old Clinical indication: Abdominal pain; Prior surgery; Surgery date: Post-operative (0-2 days); Surgery type: Feeding tube placed on Wednesday. Adb pain weakness; Additional info: Abdominal wall hematoma TECHNIQUE: Imaging protocol: Computed tomography of the abdomen and pelvis without contrast. Sagittal and coronal reformatted images were created and reviewed. Radiation optimization: All CT scans at this facility use at least one of these dose optimization techniques: automated exposure control; mA and/or kV adjustment per patient size (includes targeted exams where dose is matched to clinical indication); or iterative reconstruction. COMPARISON: 1. CR XR KUB [id number] 10/03/2021 9:54 AM 2. OT PET Scan 08/29/2021 9:59 AM RADIATION DOSE METRICS: Total DLP (mGy-cm): 717.54 FINDINGS: Limitations: Evaluation of solid organs and vasculature is limited without intravenous contrast. Tubes, catheters and devices: There is a percutaneous gastrostomy tube in the body of the stomach. Lungs: Visualized lungs are clear. Pleural spaces: No pleural effusion. Heart: Visualized portions of the heart are unremarkable. Liver: The liver is unremarkable. Gallbladder and bile ducts: The gallbladder is unremarkable. No biliary ductal dilatation. Pancreas: The pancreas is unremarkable. No pancreatic ductal dilatation. Spleen: The spleen is unremarkable. Adrenal glands: Indeterminate focus in the right adrenal gland. Hounsfield units show density greater than expected for an adenoma. This measures 3.0 x 2.6 cm (series 2, image 18), this is stable compared with 08/29/2021. The left adrenal gland is unremarkable. Kidneys and ureters: The right and left kidneys are unremarkable. The distal right and left ureters are obscured by adjacent bowel loops and soft tissue structures. The visualized portions of the ureters are unremarkable. Stomach and bowel: Nonspecific air-fluid levels present in the small bowel and colon. No dilated bowel loops. No pneumatosis. No bowel wall thickening. Appendix: Appendix not definitely visualized. No inflammatory changes in the pericecal region however. Intraperitoneal space: Surgical clips in the lower right abdomen and in the right pelvis. There is a large amount of free intraperitoneal air in the upper abdomen. This may be due to recent percutaneous gastrostomy tube placement. No ascites. No loculated fluid collections to suggest an abscess. Arteries: Mild atherosclerotic changes in the visualized arteries. No evidence for aortic aneurysm. Moderate atherosclerotic changes in the visualized arteries. No evidence for aortic aneurysm. Lymph nodes: Stable enlarged gastrohepatic ligament lymph node measuring 1.5 cm (series 2, image 15). Urinary bladder: The bladder is unremarkable. Reproductive: The prostate gland is mildly enlarged. Nonspecific parenchymal calcifications in the prostate gland. Bones/joints: Degenerative changes in the spine, sacroiliac joints, and hips. Multiple lytic lesions in the right iliac bone consistent with metastatic disease are stable. Soft tissues: Extensive subcutaneous emphysema anteriorly over the abdomen and mild subcutaneous emphysema in the upper left rectus muscle. CT/CT abdomen pelvis wo con [id number] IMPRESSION: 1. There is a percutaneous gastrostomy tube in the body of the stomach. There is a large amount of free intraperitoneal air in the upper abdomen. This may be due to recent percutaneous gastrostomy tube placement. Possible bowel perforation is considered less likely but not completely ruled out. Recommend clinical correlation 2. Extensive subcutaneous emphysema anteriorly over the abdomen and mild subcutaneous emphysema in the upper left rectus muscle. This is likely due to recent percutaneous gastrostomy tube placement. 3. Stable indeterminate focus in the right adrenal gland compared with 08/29/2021. Recommend attention to this area on previous imaging studies has a metastatic focus cannot be ruled out. 4. Stable enlarged gastrohepatic ligament lymph node suspicious for a metastatic focus. 5. Multiple metastatic lesions in the right iliac bone are stable. 6. Incidental/nonacute findings are listed in the report. ? Dictated By: Jazmin Goyal MD Signed By: Jazmin Goyal MD Signed Date/Time: 10/05/21 1707 DD/ 1644 Discharge Plan Discharge Patient Disposition: Home Clinical Impression: Dehydration, Decrease in appetite, Esophageal adenocarcinoma Condition: Stable Prescriptions: New acetaminophen 500 mg tablet 500 mg PO Q6H PRN (Reason: pain) 5 Days Qty: 20 0RF Pepcid 20 mg tablet 20 mg PO BID PRN (Reason: abdominal pain) 10 Days Qty: 20 0RF Maalox Advanced 1,000-60 mg tablet,chewable 1 tab PO TID PRN (Reason: abdominal pain) 7 Days Qty: 21 0RF No Action morphine 10 mg/5 mL solution 5 mg PO Q4H PRN (Reason: Pain) 0RF pantoprazole [Protonix] 20 mg tablet,delayed release (DR/EC) 20 mg PO DAILY 0RF ibuprofen 200 mg Tablet 1,600 mg PO BID PRN (Reason: Pain) 0RF prochlorperazine maleate [Compazine] 10 mg Tablet 10 mg PO Q4-5H PRN (Reason: nausea) 0RF ondansetron 4 mg tablet,disintegrating 4 mg PO Q6H PRN (Reason: nausea and vomiting) Qty: 30 2RF levofloxacin 750 mg tablet 750 mg PO DAILY 10 Days 0RF Discharge Orders: Discharge ED (Routine); Ordered 10/05/21 Ordered By: Delfina Tolliver Discharge Diet: Advance as tolerated Discharge Activity: Increase activity as tolerated Patient Instructions: Dehydration (ED) Activity Restrictions/Additional Instructions: Please continue to use the G tube for feeding. Come back if you have any new or concerning issues, dehydration, decreased po intake or any new or concerning issues. Coding Level of Care Code ED [employer] Supervisor for [place] Fwd Exam Comprehensive
[2021-10-05 17:03] LABS: Basophils % 0.3 %; Eosinophils # 0.1 10^3/uL (0.0-0.8); Eosinophils % 1.8 %; Hematocrit 36.5 % (42.0-52.0); Hemoglobin 12.6 g/dL (11.7-16.6); Lymphocytes % 13.8 %; Mean Corpuscular HGB Conc 34.5 g/dL (30.0-36.0); Mean Corpuscular Hemoglobin 34.8 pg (28.0-34.0); Mean Corpuscular Volume 100.8 fl (80-94); Mean Platelet Volume 9.7 fL (7.4-10.4); Monocytes # 0.7 10^3/uL (0.2-0.9); Monocytes % 8.9 %; Neutrophils # 5.48 10^3/uL (1.8-7.7); Neutrophils % 74.9 %; Nucleated Red Blood Cells % 0 %; Platelet Count 259 10^3/cmm (130-400); Red Blood Count 3.62 10^6/uL (4.1-5.3); Red Cell Distribution Width 12.6 % (12.1-15.1); White Blood Count 7.3 10^3/uL (4.0-10.0)
[2021-10-05] MEDS: sodium chloride 0.9% 1,000 ML 999 ML IV ×2 (17:10→18:23)
[2021-10-05] MEDS: famotidine 20 mg/2 mL INJ IVP (17:10)
[2021-10-05 17:29] LABS: Troponin(5th) Baseline 6 ng/L (0-15)
[2021-10-05 17:30] LABS: Alanine Aminotransferase 10 U/L (0-41); Albumin Level 3.7 g/dL (3.5-5.2); Alkaline Phosphatase 87 IU/L (40-130); Anion Gap 12.1 (5-19); Aspartate Amino Transferase 12 U/L (0-40); Blood Urea Nitrogen 22 mg/dL (6-20); Calcium 8.4 mg/dL (8.5-10.5); Carbon Dioxide 27 mmol/L (22-29); Chloride 99 mmol/L (98-107); Globulin 3.1 g/dL (1.3-4.6); Glomerular Filtration Rate 138.9 mL/min (90-130); Glucose 126 mg/dL (65-115); Lipase 20 U/L (13-60); Osmolality Calculated 283 mOsm/kg (285-295); Potassium 4.1 mmol/L (3.5-5.1); Sodium 134 mmol/L (136-145); Total Bilirubin 0.2 mg/dL (0.15-1.2); Total Protein 6.8 g/dL (6.6-8.7)
[2021-10-05 18:18] LABS: Lactate (Lactic Acid level) 0.9 mmol/L (0.5-2.2)
[2021-10-05 18:28] VITALS: BP 109/68; PULSE 68; RESP 18; O2SAT 95
--- NOTE | 2021-10-05 18:32 | PC.NURSE ---
PER DR HERNANDEZ TO CANCEL SERIES OF EKG.
[2021-10-05 19:08] LABS: Add Urine Microscopic? NO; Charge for UA Resulting for Rev
[2021-10-05 19:21] LABS: Bilirubin Urine Neg (Negative); Blood Urine Neg (Negative); Glucose Urine UA Norm (Normal); Ketones Urine 1+ (Negative); Leukocyte Esterase Urine Negative (Negative); Nitrate Urine Negative (Negative); Protein Urine Neg (Negative); Urine Appearance Clear (CLEAR); Urine Color Yellow (Yellow); Urobilinogen Urine Norm (Negative); pH Urine 7 (5-7)
[2021-10-05 19:40] LABS: Troponin 5 2HR 7.16 ng/L (0-15)
[2021-10-05 19:58] VITALS: BP 110/76; PULSE 82; RESP 16; O2SAT 97
== END 2021-10-05 19:59 | disposition home or self-care (01) ==
PROVIDERS: Emergency Provider Emergency Medicine
DX: E86.0 Dehydration (principal); R63.0 Anorexia; C15.9 Malignant neoplasm of esophagus, unspecified; Z93.1 Gastrostomy status; F17.200 Nicotine dependence, unspecified, uncomplicated
CPT/HCPCS: 71045; 74176; 80053; 81003; 83605; 83690; 84484; 85025; 93005; 96361; 96374; 99284; J3490; J7030

== ENCOUNTER 2021-10-08 07:20 | Outpatient (CLI) | payer OTHER, SELFPAY ==
--- NOTE | 2021-10-08 07:57 | XR_ITS ---
WS: [id number] ABDOMEN 2 VIEW(S) HISTORY: CHECK FOR AIR;ABD PAIN COMPARISON: 10/05/2021 CT and prior KUB 10/03/2021. Gastrostomy tube is noted in the LEFT abdomen. There are continued bubblelike lucencies noted in the LEFT upper quadrant just beneath the diaphragmatic surface. These are small foci of free air. Cannot completely exclude pneumatosis intestinalis. There is a small amount of free air beneath the RIGHT he midiaphragm. Patient had significant intraperitoneal free air noted on a recent CT of 10/05/2021. It is difficult t o compare between the 2 different imaging modalities. Numerous surgical sutures are noted in the RIGHT lower quadrant. XR/XR abdomen min 2V [id number] IMPRESSION: 1. Small amount of intraperitoneal free air as described above. Free air was n oted on a prior CT of 10/05/2021. Difficult to compare the 2 imaging modalities but the free air does persist. 2. Gastrostomy tube unchanged in position.
[2021-10-08 08:45] LABS: Basophils % 0.4 %; Eosinophils # 0.2 10^3/uL (0.0-0.8); Eosinophils % 2.8 %; Hematocrit 39.1 % (42.0-52.0); Hemoglobin 13.5 g/dL (11.7-16.6); Lymphocytes # 1.1 10^3/uL (0.8-4.8); Lymphocytes % 13.4 %; Mean Corpuscular HGB Conc 34.5 g/dL (30.0-36.0); Mean Corpuscular Hemoglobin 34.6 pg (28.0-34.0); Mean Corpuscular Volume 100.3 fl (80-94); Mean Platelet Volume 9.4 fL (7.4-10.4); Monocytes # 0.7 10^3/uL (0.2-0.9); Monocytes % 8.6 %; Neutrophils # 5.95 10^3/uL (1.8-7.7); Neutrophils % 74.4 %; Nucleated Red Blood Cells % 0 %; Platelet Count 258 10^3/cmm (130-400); Red Cell Distribution Width 12.8 % (12.1-15.1)
[2021-10-08 09:06] LABS: Alanine Aminotransferase 9 U/L (0-41); Albumin Level 3.6 g/dL (3.5-5.2); Alkaline Phosphatase 96 IU/L (40-130); Anion Gap 15.1 (5-19); Aspartate Amino Transferase 9 U/L (0-40); Blood Urea Nitrogen 19 mg/dL (6-20); Carbon Dioxide 23 mmol/L (22-29); Chloride 106 mmol/L (98-107); Globulin 3.1 g/dL (1.3-4.6); Glomerular Filtration Rate 221.7 mL/min (90-130); Glucose 89 mg/dL (65-115); Osmolality Calculated 292 mOsm/kg (285-295); Potassium 4.1 mmol/L (3.5-5.1); Sodium 140 mmol/L (136-145); Total Bilirubin 0.2 mg/dL (0.15-1.2); Total Protein 6.7 g/dL (6.6-8.7)
[2021-10-08] MEDS: sodium chloride 0.9% 250 ML 999 ML IV (09:48)
[2021-10-08] MEDS: sodium chloride 0.9% 1,000 ML 999 ML IV (09:48)
[2021-10-08] MEDS: diphenhydrAMINE 50 mg/mL SDV 1mL 25 MG IV (10:00)
[2021-10-08] MEDS: acetaminophen 325 mg Tablet 650 MG PO (10:00)
[2021-10-08] MEDS: palonosetron 0.25 mg/5 mL SDV IV (10:02)
[2021-10-08] MEDS: dextrose 5% 250 ML 75 ML IV (11:35)
--- NOTE | 2021-10-08 12:35 | ONC FU_ITS ---
Dr. Still Patient Follow-Up Note Patient: Derek Tyler Unit #: [id number]: 1965 Dicatated By: Allen Still M.D.Date of Visit:Oct 08, 2021 Onc Med Follow-up/Prog Note Chief Complaint: Esophageal cancer. 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 He had presented with difficulty swallowing which had progressively worsened over period of several months. His EGD on 08/14/2021 showed what appeared to be a mass along the left anterior portion of the GE junction. Biopsies from the antrum and body of the stomach and the duodenal bulb were benign. Biopsy from the distal esophagus showed invasive moderately to poorly differentiated adenocarcinoma. The HER-2/ezequiel was negative (1+ by IHC). Staging PET/CT on 08/29/2021 showed FDG avid thickening of the distal esophageal wall up to 1.4 cm, maximal SUV 7.65. There was also marked increase of metabolic activity involving the gastric mucosa, SUV 6.88 and in a 1.5 cm gastrohepatic lymph node, SUV 6.67. A 1.5 cm right supraclavicular lymph node also had increased FDG activity with SUV 5.80 and a right hilar lymph node measuring 1.7 x 1.0 cm had increased activity with SUV 5.80. Pulmonary micronodules were felt to be indeterminate. There were extensive FDG avid lytic lesions in the right hemipelvis consistent with metastatic involvement. Incidentally noted was uptake in the left superior alveolar ridge with adjacent maxillary sinus inflammation, concerning for infection. He had medical oncology consultation with Dr. Joaquina Galicia on 09/03/2021. He was recommended to have a trial of systemic therapy with a chemotherapy/immunotherapy combination. He was scheduled for bone biopsy of the right pelvis and for placement of Port-A-Cath venous access device. The bone biopsy was positive for metastatic adenocarcinoma consistent with the esophageal primary. I had seen him initially on 09/18/2021. Next generation sequencing study was requested on the biopsy. Those results are not yet available. In the meantime, he began cycle 1 of modified FOLFOX chemotherapy in combination with nivolumab on 09/24/2021. At that time he also started denosumab for the metastatic bone involvement. He tolerated the treatment without acute toxicity, but during subsequent follow-up his swallowing had continued to worsen. He was referred to Dr. Kemp and he underwent placement of a PEG tube on 10/01/2021. The tube had subsequently become dislodged and was found to be nonfunctional. On 10/03/2021 he underwent open gastrostomy tube placement. On 10/05/2021 he was seen in the emergency room with dehydration. CT of the abdomen/pelvis showed that the percutaneous gastrostomy tube was in good position, but there was a large amount of free intraperitoneal air in the upper abdomen. There was also associated subcutaneous emphysema. He is seen for a scheduled follow-up visit. At this point he is still has very limited oral intake and he continues to have some difficulty with his gastrostomy tube. He complains of having nausea with even small amounts of intake through the tube, and he is having significant pain in the epigastric area. He has been getting weaker, and his activity now is limited. ECOG score is 2. He has not had fever or night sweats. He has had some sinus drainage and he has a little bit of soreness in his mouth. He also has a little bit of cough. He does not complain of shortness of breath. He otherwise is not having chest pain. He has ongoing problems with constipation. Bladder function has been okay as long as he gets fluids. He has had a little bit of pain in the lateral right hip area, but he has no other joint or bone pain. He does not complain of headache. He has some lightheadedness. He had cold sensitivity following his chemotherapy, but it lasted only 2 or 3 days. Medications: Ibuprofen 3 Tablet (of 200 mg) Oral q 6 hours PRN, LORazepam (1 mg) Tablet Oral Take as Directed, Metoclopramide HCl 1 Tablet (of 10 mg) Oral four times a day PRN, Pantoprazole Sodium 1 Tablet (of 40 mg) Tablet, enteric coated Oral daily, Prochlorperazine Maleate 1 Tablet (of 10 mg) Oral q 4 hours PRN Allergies: No Known Allergies. Vital Signs: Performed on Oct 08, 2021 09:55 Height - 72.00 in Weight - 149.8 lbs (LOW) BSA - 1.88 sq.m BMI - 20.32 Temperature - 98.4 F Pulse - 78 /min Respiration - 18 /min BP - 106/67 mm(hg) O2 Sat - 91 % (LOW) Pain - 7 Fatigue - 10 Physical Examination: Constitutional - He appears somewhat weak generally, Eyes - Sclerae nonicteric. Conjunctivae clear, ENMT - No lesions noted in the oral cavity, Hematologic/Lymphatic - No cervical, clavicular, or axillary adenopathy, Respiratory - Lungs sound clear with diminished air movement bilaterally, Cardiovascular - Heart rhythm is regular. There is no murmur, gallop, or rub noted, Abdomen - There is mild tenderness in the upper abdomen. The recent vertical incision in the upper abdomen appears clean and the PEG tube site itself also looks okay. Just lateral to it is a palpable subcutaneous nodule which measures at least 5 cm. There is no associated ecchymosis. Liver and spleen are not enlarged. There is no abdominal mass or ascites noted and there is no inguinal adenopathy, Extremities - No edema, Neurologic - No focal neurologic deficits noted. Lab/Imaging: Test performed on Oct 08, 2021 08:30 Sodium 140 mmol/L Potassium 4.1 mmol/L Chloride 106 mmol/L CO2 23 mmol/L Anion Gap 15.1 BUN 19 mg/dL Creatinine 0.4 mg/dL Cr Clearance (Est) 195.83 mL/min eGFR 221.7 mL/min Glucose 89 mg/dL Osmolality - Calculated 292 mOsm/kg Calcium 8.0 mg/dL Protein, Total 6.7 g/dL Albumin 3.6 g/dL Globulin 3.1 g/dL Bilirubin, Total 0.2 mg/dL ALT (SGPT) 9 U/L AST (SGOT) 9 U/L Alkaline Phosphatase 96 IU/L WBC 8.0 10 3/uL RBC 3.90 10 6/uL HGB 13.5 g/dL HCT 39.1 % MCV 100.3 fl MCH 34.6 pg MCHC 34.5 g/dL RDW 12.8 % Platelet Count 258 10 3/cmm MPV 9.4 fL Neutrophils 5.95 10 3/uL Lymphocytes 1.1 10 3/uL Monocytes 0.7 10 3/uL Eosinophils 0.2 10 3/uL Basophils 0.0 10 3/uL Neutrophil % 74.4 % Lymphocyte % 13.4 % Monocyte % 8.6 % Eosinophil % 2.8 % Basophils % 0.4 % NRBC % 0 % Problem List: 1. 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 2. He has had borderline diabetes, diet controlled. 3. History of COVID-19 virus infection in June 2021. Problems Addressed with this Encounter and Plan: 1. 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 His tumor was found to be negative for overexpression of HER-2/ezequiel. A next generation sequencing study was requested, but those results are still pending. In the setting of advanced, HER-2/ezequiel negative disease, the recommended treatment was a chemotherapy/immunotherapy combination. On 09/24/2021 he began cycle 1 of modified FOLFOX chemotherapy in combination with nivolumab. Side effects of the chemotherapy thus far have been limited to some mild nausea and mild cold sensitivity. He also is having significant fatigue, but it is uncertain to what extent that may be chemotherapy related. Overall, he appears to have tolerated the chemotherapy very well. He will continue now with cycle 2. Dosages remain the same. He returns in 2 weeks. 2. Subsequent to the chemotherapy, he had worsening dysphagia, requiring PEG tube placement 10/01/2021. That tube unfortunately became dislodged and nonfunctional, requiring open gastrostomy tube placement on 10/03/2021. At this point he continues to have some difficulty with the gastrostomy tube management, though it appeared to be in good position on the recent CT scan. Nonetheless, as a precaution, I will request an imaging evaluation of the gastrostomy tube. In the meantime, he will be allowed to use it as he is able to tolerate, but he will also be scheduled for additional IV hydration. 3. He has metastatic bone involvement. He has started supportive therapy with denosumab injections, which will be continued at a 4-week interval. Signed By: Allen Still M.D. <<Signature on File>>
--- NOTE | 2021-10-13 11:30 | IR_ITS ---
WS: [id number] Exam: IR contrast inj gjdc tub [id number] Date/Time of Exam: 10/13/2021 11:51 AM Reason For Exam: G tube dysfunction/dye injection to check peg tube Fluoroscopy time: 1.5 minutes # of spot films: 5 Preliminary survey of the abdomen shows a gastrotomy tube position in the left abdomen. Surgical clip s in the right abdomen. Several cc of water-soluble contrast were injected through the gastrotomy tube under fluoroscopic vis ualization. The gastrotomy tube is in satisfactory position within the body the stomach. There was no evidence of extravasation of contrast outside the confines of the stomach. Contrast spills freely into the proxi mal small bowel without obstruction.
[2021-10-13] MEDS: diatrizoate meglumine 30 mL Sol PO (12:18)
== END 2021-10-08 07:21 | disposition home or self-care (01) ==
LOC: RAD 07:24 → ONCMED 08:14
PROVIDERS: Visit Provider Internal Medicine Medical Oncology
DX: Z51.12 Encounter for antineoplastic immunotherapy (principal); C15.5 Malignant neoplasm of lower third of esophagus; C79.51 Secondary malignant neoplasm of bone; R13.10 Dysphagia, unspecified; E11.9 Type 2 diabetes mellitus without complications; Z79.899 Other long term (current) drug therapy; Z86.16 Personal history of COVID-19; Z93.1 Gastrostomy status
CPT/HCPCS: 74019; 80053; 85025; 96360; 96367; 96375; 96411; 96413; 96415; 96416; 96417; 99215; J0640; J1100; J1200; J2469; J7030; J7050; J9190; J9263; J9299

== ENCOUNTER 2021-10-13 11:31 | Outpatient (CLI) | payer OTHER, SELFPAY ==
--- NOTE | 2021-10-13 | IR_ITS ---
Exam: [place] [id number] Date/Time of Exam: 10/13/2021 11:51 AM Reason For Exam: G tube dysfunction/dye injection to check peg tube Fluoroscopy time: 1.5 minutes # of spot films: 5 Preliminary survey of the abdomen shows a gastrotomy tube position in the left abdomen. Surgical clips in the right abdomen. Several cc of water-soluble contrast were injected through the gastrotomy tube under fluoroscopic visualization. The gastrotomy tube is in satisfactory position within the body the stomach. There was no evidence of extravasation of contrast outside the confines of the stomach. Contrast spills freely into the proximal small bowel without obstruction. IMPRESSION: 1. Gastrotomy tube appearing to be in satisfactory position within the body of the stomach. There was no extravasation of contrast outside the confines of the GI tract. Contrast spills freely into the proximal small bowel without obstruction. MTDD
== END 2021-10-13 11:32 | disposition home or self-care (01) ==
LOC: RAD 11:36 → ONCMED 12:29
PROVIDERS: Visit Provider Internal Medicine Medical Oncology
DX: C15.5 Malignant neoplasm of lower third of esophagus (principal); C79.51 Secondary malignant neoplasm of bone; R13.10 Dysphagia, unspecified; Z93.1 Gastrostomy status; E11.9 Type 2 diabetes mellitus without complications; Z86.16 Personal history of COVID-19; Z79.899 Other long term (current) drug therapy
CPT/HCPCS: 49465; 96360; Q9963

== ENCOUNTER 2021-10-20 08:07 | Outpatient (CLI) | payer OTHER, SELFPAY ==
[2021-10-20 08:50] LABS: Basophils % 0.5 %; Eosinophils # 0.2 10^3/uL (0.0-0.8); Eosinophils % 2.9 %; Hematocrit 36.8 % (42.0-52.0); Hemoglobin 12.5 g/dL (11.7-16.6); Lymphocytes # 1.7 10^3/uL (0.8-4.8); Lymphocytes % 28.3 %; Mean Corpuscular Hemoglobin 34.3 pg (28.0-34.0); Mean Corpuscular Volume 101.1 fl (80-94); Mean Platelet Volume 9.8 fL (7.4-10.4); Monocytes # 0.7 10^3/uL (0.2-0.9); Monocytes % 12.4 %; Neutrophils % 55.7 %; Nucleated Red Blood Cells % 0 %; Platelet Count 242 10^3/cmm (130-400); Red Blood Count 3.64 10^6/uL (4.1-5.3); Red Cell Distribution Width 13.3 % (12.1-15.1); White Blood Count 5.9 10^3/uL (4.0-10.0)
[2021-10-20 09:29] LABS: Alanine Aminotransferase 13 U/L (0-41); Albumin Level 3.9 g/dL (3.5-5.2); Alkaline Phosphatase 145 IU/L (40-130); Anion Gap 14.3 (5-19); Aspartate Amino Transferase 15 U/L (0-40); Blood Urea Nitrogen 22 mg/dL (6-20); Calcium 7.7 mg/dL (8.5-10.5); Carbon Dioxide 24 mmol/L (22-29); Chloride 104 mmol/L (98-107); Glomerular Filtration Rate 116.2 mL/min (90-130); Glucose 82 mg/dL (65-115); Osmolality Calculated 288 mOsm/kg (285-295); Potassium 4.3 mmol/L (3.5-5.1); Sodium 138 mmol/L (136-145); Thyroid Stimulating Hormone 7.84 uIU/mL (0.27-4.20); Total Bilirubin 0.3 mg/dL (0.15-1.2); Total Protein 5.9 g/dL (6.6-8.7)
[2021-10-20] MEDS: sodium chloride 0.9% 1,000 ML 999 ML IV (11:00)
[2021-10-20] MEDS: diphenhydrAMINE 50 mg/mL SDV 1mL 25 MG IV (11:03)
[2021-10-20] MEDS: acetaminophen 325 mg Tablet 650 MG PO (11:05)
[2021-10-20] MEDS: palonosetron 0.25 mg/5 mL SDV IV (11:05)
[2021-10-20] MEDS: dextrose 5% 250 ML 75 ML IV (12:25)
[2021-10-20] MEDS: denosumab 120 mg SDV SUBCUT (16:10)
--- NOTE | 2021-10-24 13:33 | ONC FU_ITS ---
Kaleigh Miller Progress Note Patient: Derek Tyler Unit #: [id number]: 1965 Dicatated By: Kaleigh Miller N.P.Date of Visit:Oct 20, 2021 Onc MED Follow-up/Prog Note Chief Complaint: Esophageal cancer. 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 He had presented with difficulty swallowing which had progressively worsened over period of several months. His EGD on 08/14/2021 showed what appeared to be a mass along the left anterior portion of the GE junction. Biopsies from the antrum and body of the stomach and the duodenal bulb were benign. Biopsy from the distal esophagus showed invasive moderately to poorly differentiated adenocarcinoma. The HER-2/ezequiel was negative (1+ by IHC). Staging PET/CT on 08/29/2021 showed FDG avid thickening of the distal esophageal wall up to 1.4 cm, maximal SUV 7.65. There was also marked increase of metabolic activity involving the gastric mucosa, SUV 6.88 and in a 1.5 cm gastrohepatic lymph node, SUV 6.67. A 1.5 cm right supraclavicular lymph node also had increased FDG activity with SUV 5.80 and a right hilar lymph node measuring 1.7 x 1.0 cm had increased activity with SUV 5.80. Pulmonary micronodules were felt to be indeterminate. There were extensive FDG avid lytic lesions in the right hemipelvis consistent with metastatic involvement. Incidentally noted was uptake in the left superior alveolar ridge with adjacent maxillary sinus inflammation, concerning for infection. He had medical oncology consultation with Dr. Joaquina Galicia on 09/03/2021. He was recommended to have a trial of systemic therapy with a chemotherapy/immunotherapy combination. He was scheduled for bone biopsy of the right pelvis and for placement of Port-A-Cath venous access device. The bone biopsy was positive for metastatic adenocarcinoma consistent with the esophageal primary. Dr. Still had seen him initially on 09/18/2021. Next generation sequencing study was requested on the biopsy. it did not indicate any actionable mutation.He began cycle 1 of modified FOLFOX chemotherapy in combination with nivolumab on 09/24/2021. At that time he also started denosumab for the metastatic bone involvement. He tolerated the treatment without acute toxicity, but during subsequent follow-up his swallowing had continued to worsen. He was referred to Dr. Kemp and he underwent placement of a PEG tube on 10/01/2021. The tube had subsequently become dislodged and was found to be nonfunctional. On 10/03/2021 he underwent open gastrostomy tube placement. On 10/05/2021 he was seen in the emergency room with dehydration. CT of the abdomen/pelvis showed that the percutaneous gastrostomy tube was in good position, but there was a large amount of free intraperitoneal air in the upper abdomen. There was also associated subcutaneous emphysema. Patient presents today for a follow-up visit. He states he has been having increased weakness and fatigue Although he refuses to just sit around he states. He is unable to tolerate very much oral intake. He has been trying Ensure but sometimes forgets to drink it. He has had a 20 pound weight loss in the past month. He does have some dysphagia especially with thin liquids. He denies shortness of breath or cough. No chest pain. He has nausea quite often and occasional vomiting. He denies diarrhea or constipation. He has decreased urine output especially when he is not able to take fluids. He received a liter of normal saline last week for hydration and that seemed to help. He denies any joint or bone pain presently. Review Of Symptoms: See above. Past Medical History: History of borderline diabetes History of COVID-19 virus infection in 2021 Past Surgical History: EGD with esophageal and gastric biopsies in 2021 Appendectomy in 2011 Allergies: No Known Allergies. Medications: Ibuprofen 3 Tablet (of 200 mg) Oral q 6 hours PRN LORazepam (1 mg) Tablet Oral Take as Directed Metoclopramide HCl 1 Tablet (of 10 mg) Oral four times a day PRN Pantoprazole Sodium 1 Tablet (of 40 mg) Tablet, enteric coated Oral daily Prochlorperazine Maleate 1 Tablet (of 10 mg) Oral q 4 hours PRN Family History: Father with prostate cancer at age 76. He also had polycythemia rubra vera. Mother with lung cancer at age 64. One brother and one sister are in good health. Social History: Mr. Tyler is . He is a daily smoker who has smoked 2.0 packs/day for 40 years. He is a former drinker who had consumed 2 drinks/day 7 days/week. He has indicated exposure to the following products: cigarettes. He has a history of smoking 2 packs of cigarettes daily for 40 years. Alcohol use reported at 4 beers daily. Physical Examination: Performed on Oct 20, 2021 10:54: Height - 72.00 in, Weight - 144.8 lbs (LOW), BSA - 1.86 sq.m, BMI - 19.64, Temperature - 97.4 F (LOW), Pulse - 54 /min (LOW), Respiration - 16 /min, BP - 102/69 mm(hg), Pain - 0, and Fatigue - 8. Performance Status: 1 - No physically strenuous activity, but ambulatory and able to carry out light or sedentary work (e.g. office work, light house work). (ECOG) Constitutional Alert, cooperative, oriented. Mood and affect appropriate. Appears close to chronological age. Well nourished. Well developed. Respiratory Lungs are clear to auscultation without rhonchi or wheezing. Cardiovascular Regular rate and rhythm of heart without murmurs, gallops or rubs. Abdomen Non-tender, non-distended, no masses, ascites or hepatosplenomegaly. Good bowel sounds. No guarding or rebound tenderness. Musculoskeletal No tenderness or swelling, normal range of motion without obvious weakness. Psychiatric Alert and oriented times three. Coherent speech. Verbalizes understanding of our discussions today. Laboratory: Test performed on Oct 20, 2021 08:35 Sodium 138 mmol/L TSH 7.84 uIU/mL Potassium 4.3 mmol/L Chloride 104 mmol/L CO2 24 mmol/L Anion Gap 14.3 BUN 22 mg/dL Creatinine 0.7 mg/dL Cr Clearance (Est) 111.9000 mL/min eGFR 116.2 mL/min Glucose 82 mg/dL Osmolality - Calculated 288 mOsm/kg Calcium 7.7 mg/dL Protein, Total 5.9 g/dL Albumin 3.9 g/dL Globulin 2.0 g/dL Bilirubin, Total 0.3 mg/dL ALT (SGPT) 13 U/L AST (SGOT) 15 U/L Alkaline Phosphatase 145 IU/L WBC 5.9 10 3/uL RBC 3.64 10 6/uL HGB 12.5 g/dL HCT 36.8 % MCV 101.1 fl MCH 34.3 pg MCHC 34.0 g/dL RDW 13.3 % Platelet Count 242 10 3/cmm MPV 9.8 fL Neutrophils 3.30 10 3/uL Lymphocytes 1.7 10 3/uL Monocytes 0.7 10 3/uL Eosinophils 0.2 10 3/uL Basophils 0.0 10 3/uL Neutrophil % 55.7 % Lymphocyte % 28.3 % Monocyte % 12.4 % Eosinophil % 2.9 % Basophils % 0.5 % NRBC % 0 % Test performed on Oct 20, 2021 00:00 Manual Diff DUP ORDER Test performed on Sep 24, 2021 08:25 Hepatitis A Ab, IgM Non-Reactive Hepatitis B Core Ab, Total Non-Reactive Hepatitis B Surf Antigen Non-Reactive Hepatitis B Surface Ab 3.5 STATUS of IMMUINITY Inconsistent with Immunity 0.0 - 8.4 mIU/mL Consistent with Indeterminate Immunity 8.5 - 11.4 mIU/mL Consistent with Immunity >= 11.5 mIU/mL Hepatitis C Ab Non-Reactive Impression: 1. 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 2. He has had borderline diabetes, diet controlled. 3. History of COVID-19 virus infection in June 2021. Plan: 1. 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 His tumor was found to be negative for overexpression of HER-2/ezequiel. A next generation sequencing study was requested, but those results are still pending. In the setting of advanced, HER-2/ezequiel negative disease, the recommended treatment was a chemotherapy/immunotherapy combination. On 09/24/2021 he began cycle 1 of modified FOLFOX chemotherapy in combination with nivolumab. Side effects of the chemotherapy have included significant fatigue, increased nausea, and occasional vomiting. Otherwise he seems to be tolerating the treatment well. He will continue with cycle 3 today and return to the clinic in 2 weeks with CBC and CMP. 2. Subsequent to the chemotherapy, he had worsening dysphagia, requiring PEG tube placement 10/01/2021. That tube unfortunately became dislodged and nonfunctional, requiring open gastrostomy tube placement on 10/03/2021. At this point he continues to have some difficulty with the gastrostomy tube management, though it appeared to be in good position on the recent CT scan. He has had a 20 pound weight loss in the past month. He has been blending his food into liquid and attempting oral intake but it does increase his nausea. Recommendations including increasing Ensure and mixing with ice cream for milkshakes to try to boost his weight. It was also recommended that he use his PEG tube as tolerated. If he continues to lose weight we may need to recommend a dietitian to assist him. We will also add additional hydration for him today. 3. He has metastatic bone involvement. He has started supportive therapy with denosumab injections, which will be continued at a 4-week interval. Signed By: Kaleigh Miller N.P. <<Signature on File>>
== END 2021-10-20 08:08 | disposition home or self-care (01) ==
PROVIDERS: Visit Provider Nurse Practitioner Family
DX: Z51.11 Encounter for antineoplastic chemotherapy (principal); C15.5 Malignant neoplasm of lower third of esophagus; C79.51 Secondary malignant neoplasm of bone; R13.10 Dysphagia, unspecified; E11.9 Type 2 diabetes mellitus without complications; F17.210 Nicotine dependence, cigarettes, uncomplicated; Z79.899 Other long term (current) drug therapy; Z93.1 Gastrostomy status; Z86.16 Personal history of COVID-19
CPT/HCPCS: 80053; 84443; 85025; 96367; 96368; 96372; 96375; 96411; 96413; 96415; 96416; 96417; 99215; J0640; J0897; J1100; J1200; J2469; J7030; J7050; J9190; J9263; J9299

== ENCOUNTER 2021-10-22 14:16 | Outpatient (CLI) | payer OTHER, SELFPAY | END 2021-10-22 14:17 | disposition home or self-care (01) | PROVIDERS: Visit Provider Internal Medicine Medical Oncology | DX: Z45.2 Encounter for adjustment and management of vascular access device (principal) | CPT/HCPCS: 96523 ==

== ENCOUNTER 2021-11-14 06:30 | Day surgery (SDC) | payer OTHER, SELFPAY ==
[2021-11-11 10:22] VITALS: BMI 19.6
[2021-11-14 06:52] VITALS: BP 98/65; PULSE 58; RESP 16; TEMP 36.1; O2SAT 99
--- NOTE | 2021-11-14 07:00 | W.PM.OPSFHP ---
Same Day Surgery H&P Indication for Procedure/HPI DATE OF PROCEDURE: November 14, 2021 CHIEF COMPLAINT/INDICATIONFOR SURGICAL PROCEDURE: egd PREOP DIAGNOSIS: upper gi symptoms PLANNED PROCEDURE: Operation Date: 11/14/21 08:00 Proposed Procedures p EGD 05998/C15.5(Not Applicable) - Magdi Kemp MD Medications/Allergies* Home Medications Medication Instructions Recorded Confirmed Type ibuprofen 200 mg tablet 1,600 mg PO BID PRN 02/05/20 11/14/21 History morphine 10 mg/5 mL oral solution 5 mg PO Q4H PRN 09/30/21 11/14/21 History pantoprazole 20 mg tablet,delayed 20 mg PO DAILY 09/30/21 11/14/21 History release (Protonix) prochlorperazine maleate 10 mg 10 mg PO Q4-5H PRN 10/01/21 11/14/21 History tablet (Compazine) metoclopramide HCl 10 mg tablet 10 mg PO Q6H PRN 10/09/21 11/14/21 History Allergies/Adverse Reactions Allergy/AdvReac Type Severity Reaction Status Date / Time No Known Allergies Allergy Verified 11/05/21 09:31 Pertinent History/Comorbid Conditions* Medical History (Updated 11/06/21 @ 06:42 by Allen Still MD) Malignant neoplasm of lower third of esophagus Stage IVB - TX, NX, M1, G3 Surgical History (Updated 10/03/21 @ 15:15 by Magdi Kemp MD) Hx of appendectomy S/P percutaneous endoscopic gastrostomy (PEG) tube placement (10/01/21) laparoscopic gastrostomy open gastrostomy tube placement 10/03/2021 Family History (Updated 11/05/21 @ 09:34 by Pam Lira LPN) Mother Chronic kidney disease (CKD) Father Cancer Mother Lung cancer Hypertension Father Denies family history of Diabetes CAD (coronary artery disease) Clotting disorder Dementia Hyperlipidemia Psychiatric illness Suicide Anesthesia complication Bleeding disorder Lung disease Stroke Social History Smoking and tobacco status: current every day smoker (1 ppd) cigarettes Packs smoked per day: 1 Alcohol intake: former Pertinent Exam Findings alert, oriented x 3 and regular rate & rhythm Recommendations Surgery/Procedure today Coding Level of Care Code Acute Supervisor [employer] for [employer]
[2021-11-14] MEDS: sodium chloride 0.9% 1,000 ML 30 ML IV (07:11)
[2021-11-14 08:34] VITALS: BP 112/76; PULSE 53; RESP 20; TEMP 36.5; O2SAT 95
[2021-11-14 08:39] VITALS: BP 105/72; PULSE 53; RESP 18; O2SAT 95
--- NOTE | 2021-11-14 08:44 | ANE.PACU2 ---
Inpatient post-anesthesia follow up: Airway intact: Yes Vital signs: Temperature 97.7 F Pulse Rate 53 Respiratory Rate 18 Blood Pressure 105/72 Pulse Oximetry 95 Oxygen Delivery Me thod Room Air Oxygen Flow Rate Fraction of Inspir ed Oxygen Hydration adequate: Yes Nausea and vomiting: No Pain level: 1 Mental status: Baseline
== END 2021-11-14 09:15 | disposition home or self-care (01) ==
PROVIDERS: Visit Provider Surgery
PROC: 0DJ08ZZ Inspection of Upper Intestinal Tract, Via Natural or Artificial Opening Endoscopic (ICD-10-PCS; CPT 43235; principal; 2021-11-14 08:00)
DX: C15.5 Malignant neoplasm of lower third of esophagus (principal); F17.210 Nicotine dependence, cigarettes, uncomplicated
CPT/HCPCS: 43235; J2704; J7030

== ENCOUNTER 2021-11-17 14:46 | Outpatient (CLI) | payer OTHER, SELFPAY ==
--- NOTE | 2021-11-17 15:00 | CT_ITS ---
WS: [id number] CT CHEST AND ABDOMEN TECHNIQUE: Contrast-enhanced CT of the chest and abdomen with coronal and sagittal reformatted images . CLINICAL INFORMATION: followup post treatment COMPARISON: CT abdomen pelvis October 05, 2021 and PET/CT August 29, 2021 DLP: 957.[address] scans at [facility] use at least one of these dose optimization techniques: automated e xposure control; mA and/or kV adjustment per patient size (includes targeted exams where dose is matc hed to clinical indication); or iterative reconstruction. CT CHEST: Moderate chronic emphysematous changes. No acute pulmonary infiltrates. No focal pneumonia or pleural fluid. Calcified granulomas. Mild aortic calcification. A few normal sized anterior mediastinal lymp h nodes. Prominent RIGHT hilar lymph node measuring 10 mm in short axis dimension with FDG activity o n the prior examination is unchanged. No progressed lymphadenopathy. Slightly spiculated nodule in th e anterior RIGHT upper lobe near the mediastinum measuring 6 mm is stable. This did demonstrate some FDG activity on the prior PET/CT. Diffuse thickening involving the distal esophagus and GE junction compatible with history of esophage al carcinoma with treatment-related changes. No axillary lymphadenopathy. A few tree-in-bud opacities within the RIGHT middle lobe and bilateral lower lobe similar to the prior PET/CT. CT ABDOMEN: Stable gastrostomy tube. Normal liver. Normal portal vein and splenic vein. Normal spleen. Small esop hageal hiatal hernia. Thickening along the distal esophagus and GE junction compatible with history o f esophageal carcinoma with treatment-related changes. Normal renal parenchymal enhancement. No hydro nephrosis. Small bilateral renal cysts. Low-attenuation RIGHT adrenal lesion measuring 2.5 cm is sta ble. Stable enlarged lymph node along the gastrohepatic ligament measuring [address]/CT chest abdomen w con* IMPRESSION: 1. No evidence of progressed disease in the chest or abdomen. 2. Stable prominent RIGHT hilar lymph node measuring 10 mm corresponds to the FDG activity on the prior examination. 3. A few tree-in-bud opacities in the RIGHT middle lobe and bilateral lower lo be similar to the prior PET/CT. 4. Slightly spiculated nodule in the anterior RIGHT upper lobe near the medias tinum measuring 6 mm is stable. This did demonstrate some FDG activity on the p rior PET/CT. 5. Stable enlarged gastrohepatic lymph node measuring 10 mm is unchanged. 6. Mild thickening in the distal esophagus and GE junction compatible with rick atment-related changes from esophageal carcinoma. 7. Gastrostomy tube. 8. Stable 2.5 cm low-attenuation RIGHT adrenal lesion.
[2021-11-17] MEDS: iohexol 300 mg/mL 100 mL Btl IV (15:28)
== END 2021-11-17 14:47 | disposition home or self-care (01) ==
PROVIDERS: Visit Provider Internal Medicine Medical Oncology
DX: C80.1 Malignant (primary) neoplasm, unspecified (principal); E27.9 Disorder of adrenal gland, unspecified; Z93.1 Gastrostomy status; R59.9 Enlarged lymph nodes, unspecified
CPT/HCPCS: 71260; 74160

== ENCOUNTER 2021-11-19 09:00 | Oncology outpatient (recurring) (ONCR) | payer OTHER, SELFPAY ==
[2021-11-05 08:26] LABS: Basophils % 0.2 %; Eosinophils # 0.2 10^3/uL (0.0-0.8); Eosinophils % 3.4 %; Hematocrit 30.6 % (42.0-52.0); Hemoglobin 10.8 g/dL (11.7-16.6); Lymphocytes % 21.9 %; Mean Corpuscular HGB Conc 35.3 g/dL (30.0-36.0); Mean Corpuscular Hemoglobin 36.5 pg (28.0-34.0); Mean Corpuscular Volume 103.4 fl (80-94); Mean Platelet Volume 9.5 fL (7.4-10.4); Monocytes # 0.7 10^3/uL (0.2-0.9); Monocytes % 13.9 %; Neutrophils % 60.2 %; Nucleated Red Blood Cells % 0 %; Platelet Count 169 10^3/cmm (130-400); Red Blood Count 2.96 10^6/uL (4.1-5.3); Red Cell Distribution Width 15.5 % (12.1-15.1); White Blood Count 4.7 10^3/uL (4.0-10.0)
[2021-11-05 08:49] LABS: Alanine Aminotransferase 12 U/L (0-41); Albumin Level 3.5 g/dL (3.5-5.2); Alkaline Phosphatase 130 IU/L (40-130); Anion Gap 11.8 (5-19); Aspartate Amino Transferase 10 U/L (0-40); Blood Urea Nitrogen 24 mg/dL (6-20); Calcium 8.1 mg/dL (8.5-10.5); Carbon Dioxide 24 mmol/L (22-29); Chloride 104 mmol/L (98-107); Globulin 2.3 g/dL (1.3-4.6); Glomerular Filtration Rate 171.4 mL/min (90-130); Glucose 113 mg/dL (65-115); Osmolality Calculated 287 mOsm/kg (285-295); Potassium 3.8 mmol/L (3.5-5.1); Sodium 136 mmol/L (136-145); Total Bilirubin 0.2 mg/dL (0.15-1.2); Total Protein 5.8 g/dL (6.6-8.7)
[2021-11-05] MEDS: sodium chloride 0.9% 250 ML 75 ML IV (10:58)
[2021-11-05] MEDS: diphenhydrAMINE 50 mg/mL SDV 1mL 25 MG IVP (11:01)
[2021-11-05] MEDS: nivolumab 240 MG in sodium chloride 0.9% 250 ML 548 MG IV (11:13)
[2021-11-05] MEDS: acetaminophen 650 mg/20.3 mL UDC PO (11:54)
[2021-11-05] MEDS: palonosetron 0.25 mg/5 mL SDV IVP (11:55)
[2021-11-05] MEDS: leucovorin 740 MG in dextrose 5% 250 ML 81 MG IV (12:40)
[2021-11-05] MEDS: OXALIPLATIN IV (12:42)
[2021-11-05] MEDS: DEXTROSE 5% IV (12:42)
[2021-11-05] MEDS: dextrose 5% 250 ML 25 ML IV (12:48)
[2021-11-05] MEDS: fluorouraciL 50 mg/ml MDV 100 mL 750 MG IVP (16:08)
[2021-11-05] MEDS: fluorouraciL 4,450 MG, elastomeric pump 1 PUMP in sodium chloride 0.9% (100 ml) 3 ML IV (16:10)
[2021-11-05 16:24] VITALS: BP 113/70; PULSE 50; O2SAT 95
[2021-11-19 08:53] LABS: Basophils % 0.4 %; Eosinophils # 0.3 10^3/uL (0.0-0.8); Eosinophils % 5.1 %; Hematocrit 32.4 % (42.0-52.0); Hemoglobin 11.3 g/dL (11.7-16.6); Lymphocytes # 1.3 10^3/uL (0.8-4.8); Lymphocytes % 23.6 %; Mean Corpuscular HGB Conc 34.9 g/dL (30.0-36.0); Mean Corpuscular Hemoglobin 35.9 pg (28.0-34.0); Mean Corpuscular Volume 102.9 fl (80-94); Mean Platelet Volume 9.6 fL (7.4-10.4); Monocytes # 0.8 10^3/uL (0.2-0.9); Neutrophils # 3.19 10^3/uL (1.8-7.7); Neutrophils % 56.5 %; Nucleated Red Blood Cells % 0 %; Platelet Count 221 10^3/cmm (130-400); Red Blood Count 3.15 10^6/uL (4.1-5.3); Red Cell Distribution Width 17.3 % (12.1-15.1); White Blood Count 5.6 10^3/uL (4.0-10.0)
[2021-11-19 08:59] VITALS: BMI 20.5
[2021-11-19 09:35] LABS: Alanine Aminotransferase 16 U/L (0-41); Albumin Level 3.9 g/dL (3.5-5.2); Alkaline Phosphatase 112 IU/L (40-130); Anion Gap 12.5 (5-19); Aspartate Amino Transferase 12 U/L (0-40); Blood Urea Nitrogen 20 mg/dL (6-20); Calcium 8.5 mg/dL (8.5-10.5); Carbon Dioxide 26 mmol/L (22-29); Chloride 100 mmol/L (98-107); Globulin 2.8 g/dL (1.3-4.6); Glomerular Filtration Rate 171.4 mL/min (90-130); Glucose 93 mg/dL (65-115); Osmolality Calculated 280 mOsm/kg (285-295); Potassium 4.5 mmol/L (3.5-5.1); Sodium 134 mmol/L (136-145); Thyroid Stimulating Hormone 2.16 uIU/mL (0.27-4.20); Total Bilirubin 0.3 mg/dL (0.15-1.2); Total Protein 6.7 g/dL (6.6-8.7)
[2021-11-19] MEDS: sodium chloride 0.9% 250 ML 100 ML IV (10:24)
[2021-11-19] MEDS: diphenhydrAMINE 50 mg/mL SDV 1mL 25 MG IVP (10:24)
[2021-11-19] MEDS: acetaminophen 650 mg/20.3 mL UDC PO (10:25)
[2021-11-19] MEDS: palonosetron 0.25 mg/5 mL SDV IVP (10:27)
[2021-11-19] MEDS: nivolumab 240 MG in sodium chloride 0.9% 250 ML 548 MG IV (11:00)
[2021-11-19] MEDS: dextrose 5% 250 ML 100 ML IV (11:46)
[2021-11-19] MEDS: leucovorin 740 MG in dextrose 5% 250 ML 81 MG IV (11:46)
[2021-11-19] MEDS: OXALIPLATIN IV (11:46)
[2021-11-19] MEDS: DEXTROSE 5% IV (11:46)
[2021-11-19] MEDS: fluorouraciL 50 mg/ml MDV 100 mL 750 MG IVP (14:54)
[2021-11-19] MEDS: fluorouraciL 4,450 MG, elastomeric pump 1 PUMP in sodium chloride 0.9% (100 ml) 3 ML IV (14:55)
[2021-11-19 15:12] VITALS: BP 97/64; PULSE 59; RESP 16; TEMP 36.1; O2SAT 93
== END 2021-11-25 23:59 | disposition home or self-care (01) ==
PROVIDERS: Visit Provider Internal Medicine Medical Oncology
DX: Z51.11 Encounter for antineoplastic chemotherapy (principal); C15.5 Malignant neoplasm of lower third of esophagus; C79.51 Secondary malignant neoplasm of bone; R53.82 Chronic fatigue, unspecified; G62.0 Drug-induced polyneuropathy; T45.1X5A Adverse effect of antineoplastic and immunosuppressive drugs, initial encounter; Z79.899 Other long term (current) drug therapy
CPT/HCPCS: 80053; 84443; 85025; 96367; 96368; 96375; 96411; 96413; 96415; 96416; 96417; J0640; J1100; J1200; J2469; J7050; J9190; J9263; J9299

== ENCOUNTER 2021-12-17 09:00 | Oncology outpatient (recurring) (ONCR) | payer OTHER, SELFPAY ==
[2021-12-03 09:30] VITALS: BMI 20.5
[2021-12-03 09:47] LABS: Basophils % 0.2 %; Eosinophils # 0.1 10^3/uL (0.0-0.8); Eosinophils % 1.5 %; Hematocrit 33.2 % (42.0-52.0); Hemoglobin 11.2 g/dL (11.7-16.6); Lymphocytes # 1.3 10^3/uL (0.8-4.8); Mean Corpuscular HGB Conc 33.7 g/dL (30.0-36.0); Mean Corpuscular Hemoglobin 36.1 pg (28.0-34.0); Mean Corpuscular Volume 107.1 fl (80-94); Mean Platelet Volume 9.4 fL (7.4-10.4); Monocytes # 0.8 10^3/uL (0.2-0.9); Monocytes % 13.4 %; Neutrophils # 3.86 10^3/uL (1.8-7.7); Neutrophils % 63.6 %; Nucleated Red Blood Cells % 0 %; Platelet Count 219 10^3/cmm (130-400); Red Cell Distribution Width 19.9 % (12.1-15.1); White Blood Count 6.1 10^3/uL (4.0-10.0)
[2021-12-03 10:09] LABS: Alanine Aminotransferase 18 U/L (0-41); Albumin Level 3.9 g/dL (3.5-5.2); Alkaline Phosphatase 81 IU/L (40-130); Anion Gap 12.1 (5-19); Aspartate Amino Transferase 13 U/L (0-40); Blood Urea Nitrogen 25 mg/dL (6-20); Calcium 8.5 mg/dL (8.5-10.5); Carbon Dioxide 24 mmol/L (22-29); Chloride 105 mmol/L (98-107); Globulin 2.8 g/dL (1.3-4.6); Glomerular Filtration Rate 171.4 mL/min (90-130); Glucose 112 mg/dL (65-115); Osmolality Calculated 289 mOsm/kg (285-295); Potassium 4.1 mmol/L (3.5-5.1); Sodium 137 mmol/L (136-145); Total Bilirubin 0.3 mg/dL (0.15-1.2); Total Protein 6.7 g/dL (6.6-8.7)
[2021-12-03] MEDS: sodium chloride 0.9% 250 ML 75 ML IV (11:15)
[2021-12-03] MEDS: acetaminophen 650 mg/20.3 mL UDC PO (11:16)
[2021-12-03] MEDS: diphenhydrAMINE 50 mg/mL SDV 1mL 25 MG IVP (11:16)
[2021-12-03] MEDS: palonosetron 0.25 mg/5 mL SDV IVP (11:53)
[2021-12-03] MEDS: dextrose 5% 250 ML 75 ML IV (12:16)
[2021-12-03] MEDS: nivolumab 240 MG in sodium chloride 0.9% 250 ML 548 MG IV (12:19)
[2021-12-03] MEDS: leucovorin 740 MG in dextrose 5% 250 ML 81 MG IV (12:50)
[2021-12-03] MEDS: denosumab 120 mg SDV SUBCUT (14:19)
[2021-12-03] MEDS: fluorouraciL 50 mg/ml MDV 100 mL 750 MG IVP (16:20)
[2021-12-03] MEDS: fluorouraciL 4,450 MG, elastomeric pump 1 PUMP in sodium chloride 0.9% (100 ml) 3 ML IV (16:26)
[2021-12-03 16:38] VITALS: BP 122/76; PULSE 67; RESP 16; TEMP 36.6; O2SAT 92
[2021-12-17 09:17] VITALS: BMI 20.5
[2021-12-17 09:50] LABS: Basophils % 0.3 %; Eosinophils # 0.1 10^3/uL (0.0-0.8); Eosinophils % 1.8 %; Hemoglobin 11.3 g/dL (11.7-16.6); Lymphocytes # 1.2 10^3/uL (0.8-4.8); Lymphocytes % 18.1 %; Mean Corpuscular HGB Conc 35.3 g/dL (30.0-36.0); Mean Corpuscular Hemoglobin 37.2 pg (28.0-34.0); Mean Corpuscular Volume 105.3 fl (80-94); Mean Platelet Volume 9.4 fL (7.4-10.4); Monocytes % 14.6 %; Neutrophils # 4.21 10^3/uL (1.8-7.7); Neutrophils % 64.3 %; Nucleated Red Blood Cells % 0 %; Platelet Count 227 10^3/cmm (130-400); Red Blood Count 3.04 10^6/uL (4.1-5.3); Red Cell Distribution Width 20.3 % (12.1-15.1); White Blood Count 6.6 10^3/uL (4.0-10.0)
[2021-12-17 10:11] LABS: Alanine Aminotransferase 29 U/L (0-41); Albumin Level 4.2 g/dL (3.5-5.2); Alkaline Phosphatase 71 IU/L (40-130); Anion Gap 12.4 (5-19); Aspartate Amino Transferase 17 U/L (0-40); Blood Urea Nitrogen 27 mg/dL (6-20); Calcium 8.6 mg/dL (8.5-10.5); Carbon Dioxide 26 mmol/L (22-29); Chloride 99 mmol/L (98-107); Globulin 2.9 g/dL (1.3-4.6); Glomerular Filtration Rate 138.9 mL/min (90-130); Glucose 100 mg/dL (65-115); Osmolality Calculated 281 mOsm/kg (285-295); Potassium 4.4 mmol/L (3.5-5.1); Sodium 133 mmol/L (136-145); Total Bilirubin 0.2 mg/dL (0.15-1.2); Total Protein 7.1 g/dL (6.6-8.7)
[2021-12-17] MEDS: acetaminophen 650 mg/20.3 mL UDC PO (11:23)
[2021-12-17] MEDS: sodium chloride 0.9% 250 ML 100 ML IV (11:24)
[2021-12-17] MEDS: palonosetron 0.25 mg/5 mL SDV IVP (11:26)
[2021-12-17] MEDS: diphenhydrAMINE 50 mg/mL SDV 1mL 25 MG IVP (11:27)
[2021-12-17] MEDS: sodium chloride 0.9% 500 ML 999 ML IV (11:56)
[2021-12-17] MEDS: nivolumab 240 MG in sodium chloride 0.9% 250 ML 548 MG IV (12:09)
[2021-12-17] MEDS: dextrose 5% 250 ML 75 ML IV (12:53)
[2021-12-17] MEDS: leucovorin 740 MG in dextrose 5% 250 ML 81 MG IV (12:54)
[2021-12-17] MEDS: DEXTROSE 5% IV (12:55)
[2021-12-17] MEDS: OXALIPLATIN IV (12:55)
[2021-12-17] MEDS: fluorouraciL 50 mg/ml MDV 100 mL 750 MG IVP (16:29)
[2021-12-17] MEDS: fluorouraciL 4,450 MG, elastomeric pump 1 PUMP in sodium chloride 0.9% (100 ml) 3 ML IV (16:31)
[2021-12-17 16:43] VITALS: BP 100/63; PULSE 61; RESP 16; TEMP 36.9; O2SAT 93
== END 2021-12-25 23:59 | disposition home or self-care (01) ==
PROVIDERS: Nurse Practitioner; Visit Provider Internal Medicine Medical Oncology
DX: Z51.11 Encounter for antineoplastic chemotherapy (principal); C15.5 Malignant neoplasm of lower third of esophagus; C79.51 Secondary malignant neoplasm of bone; E03.9 Hypothyroidism, unspecified; F17.210 Nicotine dependence, cigarettes, uncomplicated; Z79.52 Long term (current) use of systemic steroids; Z79.899 Other long term (current) drug therapy
CPT/HCPCS: 80053; 84443; 85025; 96361; 96367; 96368; 96372; 96375; 96411; 96413; 96415; 96416; 96417; J0640; J0897; J1100; J1200; J2469; J7040; J7050; J9190; J9263; J9299

== ENCOUNTER 2022-01-14 08:00 | Oncology outpatient (recurring) (ONCR) | payer OTHER, SELFPAY ==
[2021-12-31 08:44] VITALS: BMI 21.2
[2021-12-31 08:48] LABS: Basophils % 0.4 %; Eosinophils % 0.4 %; Hematocrit 29.3 % (42.0-52.0); Hemoglobin 10.1 g/dL (11.7-16.6); Lymphocytes # 0.8 10^3/uL (0.8-4.8); Lymphocytes % 13.8 %; Mean Corpuscular HGB Conc 34.5 g/dL (30.0-36.0); Mean Corpuscular Hemoglobin 37.5 pg (28.0-34.0); Mean Corpuscular Volume 108.9 fl (80-94); Mean Platelet Volume 9.8 fL (7.4-10.4); Monocytes # 0.5 10^3/uL (0.2-0.9); Monocytes % 8.9 %; Neutrophils # 4.34 10^3/uL (1.8-7.7); Nucleated Red Blood Cells % 0 %; Platelet Count 187 10^3/cmm (130-400); Red Blood Count 2.69 10^6/uL (4.1-5.3); White Blood Count 5.7 10^3/uL (4.0-10.0)
[2021-12-31 09:24] LABS: Alanine Aminotransferase 112 U/L (0-41); Albumin Level 3.8 g/dL (3.5-5.2); Alkaline Phosphatase 71 IU/L (40-130); Anion Gap 14.8 (5-19); Aspartate Amino Transferase 55 U/L (0-40); Blood Urea Nitrogen 26 mg/dL (6-20); Calcium 8.3 mg/dL (8.5-10.5); Carbon Dioxide 23 mmol/L (22-29); Chloride 100 mmol/L (98-107); Globulin 2.8 g/dL (1.3-4.6); Glomerular Filtration Rate 171.4 mL/min (90-130); Glucose 85 mg/dL (65-115); Osmolality Calculated 280 mOsm/kg (285-295); Potassium 4.8 mmol/L (3.5-5.1); Sodium 133 mmol/L (136-145); Thyroid Stimulating Hormone 0.79 uIU/mL (0.27-4.20); Total Bilirubin 0.2 mg/dL (0.15-1.2); Total Protein 6.6 g/dL (6.6-8.7)
[2021-12-31] MEDS: sodium chloride 0.9% 250 ML 100 ML IV (10:21)
[2021-12-31] MEDS: acetaminophen 650 mg/20.3 mL UDC PO (10:22)
[2021-12-31] MEDS: palonosetron 0.25 mg/5 mL SDV IVP (10:22)
[2021-12-31] MEDS: diphenhydrAMINE 50 mg/mL SDV 1mL 25 MG IVP (10:25)
[2021-12-31] MEDS: nivolumab 240 MG in sodium chloride 0.9% 250 ML 548 MG IV (11:02)
[2021-12-31] MEDS: dextrose 5% 250 ML 100 ML IV (11:40)
[2021-12-31] MEDS: DEXTROSE 5% IV (11:42)
[2021-12-31] MEDS: OXALIPLATIN IV (11:42)
[2021-12-31] MEDS: leucovorin 740 MG in dextrose 5% 250 ML 81 MG IV (11:42)
[2021-12-31] MEDS: fluorouraciL 50 mg/ml MDV 100 mL 750 MG IVP (15:57)
[2021-12-31] MEDS: fluorouraciL 4,450 MG, elastomeric pump 1 PUMP in sodium chloride 0.9% (100 ml) 3 ML IV (16:00)
[2021-12-31 16:03] VITALS: BP 111/73; PULSE 54; RESP 16; TEMP 36.7; O2SAT 96
[2022-01-14 08:22] VITALS: BMI 20.9
[2022-01-14 08:22] LABS: Basophils % 0.3 %; Eosinophils % 0.5 %; Hematocrit 33.6 % (42.0-52.0); Hemoglobin 11.5 g/dL (11.7-16.6); Lymphocytes % 15.5 %; Mean Corpuscular HGB Conc 34.2 g/dL (30.0-36.0); Mean Corpuscular Hemoglobin 39.7 pg (28.0-34.0); Mean Corpuscular Volume 115.9 fl (80-94); Mean Platelet Volume 9.7 fL (7.4-10.4); Monocytes % 15.5 %; Neutrophils # 4.48 10^3/uL (1.8-7.7); Neutrophils % 67.4 %; Nucleated Red Blood Cells % 0 %; Platelet Count 198 10^3/cmm (130-400); Red Cell Distribution Width 18.8 % (12.1-15.1); White Blood Count 6.6 10^3/uL (4.0-10.0)
[2022-01-14 09:10] LABS: Alanine Aminotransferase 63 U/L (0-41); Albumin Level 4.2 g/dL (3.5-5.2); Alkaline Phosphatase 74 IU/L (40-130); Aspartate Amino Transferase 20 U/L (0-40); Blood Urea Nitrogen 27 mg/dL (6-20); Calcium 8.8 mg/dL (8.5-10.5); Carbon Dioxide 25 mmol/L (22-29); Chloride 97 mmol/L (98-107); Globulin 2.5 g/dL (1.3-4.6); Glomerular Filtration Rate 171.4 mL/min (90-130); Glucose 116 mg/dL (65-115); Osmolality Calculated 284 mOsm/kg (285-295); Sodium 134 mmol/L (136-145); Total Bilirubin 0.2 mg/dL (0.15-1.2); Total Protein 6.7 g/dL (6.6-8.7)
[2022-01-14 09:20] LABS: Anion Gap 16.2 (5-19); Potassium 4.2 mmol/L (3.5-5.1)
[2022-01-14] MEDS: dextrose 5% 250 ML 100 ML IV (09:57)
[2022-01-14] MEDS: palonosetron 0.25 mg/5 mL SDV IVP (10:00)
[2022-01-14] MEDS: diphenhydrAMINE 50 mg/mL SDV 1mL 25 MG IVP (10:01)
[2022-01-14] MEDS: OXALIPLATIN IV (10:30)
[2022-01-14] MEDS: DEXTROSE 5% IV (10:30)
[2022-01-14] MEDS: leucovorin 740 MG in dextrose 5% 250 ML 81 MG IV (10:31)
[2022-01-14] MEDS: denosumab 120 mg SDV SUBCUT (10:44)
[2022-01-14] MEDS: fluorouraciL 50 mg/ml MDV 100 mL 750 MG IVP (13:32)
[2022-01-14] MEDS: fluorouraciL 4,450 MG, elastomeric pump 1 PUMP in sodium chloride 0.9% (100 ml) 3 ML IV (13:34)
[2022-01-14 13:44] VITALS: BP 118/78; PULSE 71; RESP 16; TEMP 36.7; O2SAT 96
== END 2022-01-25 23:59 | disposition home or self-care (01) ==
PROVIDERS: Visit Provider Internal Medicine Medical Oncology
DX: Z51.11 Encounter for antineoplastic chemotherapy (principal); E03.9 Hypothyroidism, unspecified; C15.5 Malignant neoplasm of lower third of esophagus
CPT/HCPCS: 80053; 84443; 85025; 96367; 96368; 96372; 96375; 96411; 96413; 96415; 96416; 96417; J0640; J0897; J1100; J1200; J2469; J7050; J9190; J9263; J9299

== ENCOUNTER 2022-02-25 08:30 | Oncology outpatient (recurring) (ONCR) | payer OTHER, SELFPAY ==
[2022-01-28 08:19] LABS: Basophils % 0.2 %; Eosinophils % 0.2 %; Hematocrit 32.8 % (42.0-52.0); Lymphocytes # 0.4 10^3/uL (0.8-4.8); Lymphocytes % 8.2 %; Mean Corpuscular HGB Conc 33.5 g/dL (30.0-36.0); Mean Corpuscular Hemoglobin 39.9 pg (28.0-34.0); Mean Corpuscular Volume 118.8 fl (80-94); Mean Platelet Volume 9.6 fL (7.4-10.4); Monocytes # 0.8 10^3/uL (0.2-0.9); Monocytes % 16.1 %; Neutrophils # 3.62 10^3/uL (1.8-7.7); Neutrophils % 74.7 %; Nucleated Red Blood Cells % 0 %; Platelet Count 179 10^3/cmm (130-400); Red Blood Count 2.76 10^6/uL (4.1-5.3); Red Cell Distribution Width 16.2 % (12.1-15.1); White Blood Count 4.9 10^3/uL (4.0-10.0)
[2022-01-28 08:45] LABS: Alanine Aminotransferase 72 U/L (0-41); Albumin Level 3.7 g/dL (3.5-5.2); Alkaline Phosphatase 74 IU/L (40-130); Anion Gap 14.7 (5-19); Aspartate Amino Transferase 35 U/L (0-40); Blood Urea Nitrogen 22 mg/dL (6-20); Calcium 8.3 mg/dL (8.5-10.5); Carbon Dioxide 27 mmol/L (22-29); Chloride 100 mmol/L (98-107); Globulin 2.8 g/dL (1.3-4.6); Glomerular Filtration Rate 171.4 mL/min (90-130); Glucose 151 mg/dL (65-115); Osmolality Calculated 290 mOsm/kg (285-295); Potassium 4.7 mmol/L (3.5-5.1); Sodium 137 mmol/L (136-145); Thyroid Stimulating Hormone 1.57 uIU/mL (0.27-4.20); Total Bilirubin 0.2 mg/dL (0.15-1.2); Total Protein 6.5 g/dL (6.6-8.7)
--- NOTE | 2022-01-28 10:00 | CT_ITS ---
WS: [id number] CT PELVIS WITHOUT HISTORY: right hip pain TECHNIQUE: Contiguous imaging is performed of the pelvis without contrast. Coronal and sagittal refor mats are reviewed. All CT scans at [facility] use at least one of these dose optimization trevor hniques: automated exposure control; mA and/or kV adjustment per patient size (includes targeted exam s where dose is matched to clinical indication); or iterative reconstruction. DLP: 665.81 mGy.cm COMPARISON: CT 10/05/2021 and 08/29/2021 No acute hip fracture is identified. Similar configuration of the RIGHT hip as compared to 10/05/2021. No displacement of the hip or acute fracture is identified. There are numerous sclerotic and lytic lesions in the RIGHT pelvis. The lytic lesions noted on the pr ior CT of 10/05/2021 have become more sclerotic and this may be posttreatment but there are numerous t he additional sclerotic lesions now within the LEFT ilium, acetabulum and inferior RIGHT pubic rami. There is a sclerotic lesion which is demonstrating bony expansion from the posterior acetabulum. This expansile lesion is extending into the hip joint which may be causing some symptoms and discomfort. There is a lucency through the lytic lesion in the RIGHT ilium which is probably from a pathological fracture and may be partially healed. Fat-containing RIGHT inguinal hernia. No free fluid. No adenopathy. CT/CT pelvis wo con [id number] IMPRESSION: 1. No acute RIGHT hip fracture is identified. If there is continued concern fo r an occult hip fracture MRI of the hip would provide additional information co ncerning marrow edema. 2. Numerous mixed sclerotic and lytic lesions within the RIGHT ilium, acetabul um and inferior pubic rami. The lytic lesions described on a prior CT are becom ing sclerotic and expansile which may be related to treatment. The number of sc lerotic lesions has progressed. 3. There is a expansile posterior acetabular lesion extending into the hip ja nt. This could be causing the patient symptoms.
[2022-01-28] MEDS: dextrose 5% 250 ML 100 ML IV (10:38)
[2022-01-28] MEDS: ondansetron 2 mg/ML SDV 2 mL 8 MG IVP (10:39)
[2022-01-28] MEDS: leucovorin 780 MG in dextrose 5% 250 ML 82 MG IV (10:41)
[2022-01-28] MEDS: fluorouraciL 50 mg/ml MDV 100 mL 800 MG IVP (11:13)
[2022-01-28] MEDS: fluorouraciL 4,650 MG, elastomeric pump 1 PUMP in sodium chloride 0.9% (100 ml) 0 ML IV (11:14)
[2022-01-28 11:48] VITALS: BP 108/69; PULSE 61; RESP 16; TEMP 36.9; O2SAT 98
--- NOTE | 2022-02-03 11:08 | N.ONRAD NP_ITS ---
Radiation Oncology Consultation Patient Name: Derek Tyler Date of : 1965 Date of Service: 02/03/2022 Attending Physician: Alec Malcolm M.D. Derek Tyler was seen for consultation this morning at the request of Allen Still M.D. for consideration of palliative radiotherapy for the management of metastatic esophageal cancer. He was evaluated in July for dysphagia. An esophagogastroduodenoscopy identified a mass at the GE junction. Biopsies diagnosed an invasive moderately to poorly differentiated adenocarcinoma (HER2 was negative - 1+). PET scan obtained on August 29, 2021 described hypermetabolic activity within the distal esophageal wall, FDG activity and a gastrohepatic lymph node, right supraclavicular lymph node, and right hilar lymph node, metabolic lytic lesions in the right julia-pelvis, and indeterminate pulmonary micronodules. Metastatic disease was confirmed from a biopsy of the right pelvis that demonstrated adenocarcinoma consistent with esophageal primary. He was prescribed modified FOLFOX in combination with nivolumab. The first cycle was administered on September 24, 2021. A restaging PET scan completed on December 23, 2021 reported a significant response. The last administration of immunotherapy/immunotherapy was December 31, 2021 (cycle 8). On account of worsening right hip pain, a pelvic CT scan (independently reviewed in synapse) was ordered on January 28, 2022. There were numerous sclerotic and lytic lesions described in the right pelvis and new parotic lesions in the left ilium, acetabulum, and right inferior pubic ramus. The patient was evaluated for palliative radiotherapy. I discussed with Mr. Tyler the role for palliative radiotherapy in the setting of painful metastases. He would like to change his narcotic prescription and assess the pain before initiating palliative treatment. If he elects to radiotherapy, I anticipate a 2 week course of treatment. A CT scan will be acquired for radiotherapy planning prior to beginning treatment to delineate the clinical target volume. The potential toxicities of pelvic radiotherapy were reviewed. The patient has verbalized understanding would like to proceed as recommended. His medical treatment plan has been discussed with Allen Still M.D. Signed by: Dr. Alec Malcolm 02/03/2022 11:06:32 AM
[2022-02-11 08:21] VITALS: BMI 20.9
[2022-02-11 08:25] LABS: Basophils % 0.3 %; Eosinophils % 0.6 %; Hemoglobin 11.5 g/dL (11.7-16.6); Lymphocytes # 0.9 10^3/uL (0.8-4.8); Lymphocytes % 12.1 %; Mean Corpuscular HGB Conc 33.8 g/dL (30.0-36.0); Mean Corpuscular Hemoglobin 39.8 pg (28.0-34.0); Mean Corpuscular Volume 117.6 fl (80-94); Mean Platelet Volume 9.3 fL (7.4-10.4); Monocytes # 0.7 10^3/uL (0.2-0.9); Monocytes % 9.4 %; Neutrophils # 5.41 10^3/uL (1.8-7.7); Neutrophils % 76.6 %; Nucleated Red Blood Cells % 0 %; Platelet Count 225 10^3/cmm (130-400); Red Blood Count 2.89 10^6/uL (4.1-5.3); Red Cell Distribution Width 14.4 % (12.1-15.1); White Blood Count 7.1 10^3/uL (4.0-10.0)
[2022-02-11 08:51] LABS: Alanine Aminotransferase 93 U/L (0-41); Alkaline Phosphatase 82 U/L (40-130); Anion Gap 13.7 (5-19); Aspartate Amino Transferase 47 U/L (0-40); Blood Urea Nitrogen 18 mg/dL (6-20); Calcium 9.2 mg/dL (8.5-10.5); Carbon Dioxide 28 mmol/L (22-29); Chloride 97 mmol/L (98-107); Globulin 3.1 g/dL (1.3-4.6); Glomerular Filtration Rate 138.9 mL/min (90-130); Glucose 105 mg/dL (65-115); Osmolality Calculated 280 mOsm/kg (285-295); Potassium 4.7 mmol/L (3.5-5.1); Sodium 134 mmol/L (136-145); Total Bilirubin 0.2 mg/dL (0.15-1.2); Total Protein 7.1 g/dL (6.6-8.7)
[2022-02-11] MEDS: dextrose 5% 250 ML 100 ML IV (10:12)
[2022-02-11] MEDS: ondansetron 2 mg/ML SDV 2 mL 8 MG IVP (10:16)
[2022-02-11] MEDS: leucovorin 740 MG in dextrose 5% 250 ML 81 MG IV (10:38)
[2022-02-11] MEDS: fluorouraciL 50 mg/ml MDV 100 mL 750 MG IVP (11:15)
[2022-02-11] MEDS: fluorouraciL 4,450 MG, elastomeric pump 1 PUMP in sodium chloride 0.9% (100 ml) 3 ML IV (11:16)
[2022-02-25 08:42] VITALS: BMI 21.1
[2022-02-25 09:02] LABS: Basophils % 0.1 %; Eosinophils # 0.1 10^3/uL (0.0-0.8); Eosinophils % 0.9 %; Hematocrit 32.9 % (42.0-52.0); Hemoglobin 11.3 g/dL (11.7-16.6); Lymphocytes # 1.1 10^3/uL (0.8-4.8); Lymphocytes % 9.5 %; Mean Corpuscular HGB Conc 34.3 g/dL (30.0-36.0); Mean Corpuscular Hemoglobin 39.8 pg (28.0-34.0); Mean Corpuscular Volume 115.8 fl (80-94); Mean Platelet Volume 9.3 fL (7.4-10.4); Monocytes # 0.9 10^3/uL (0.2-0.9); Monocytes % 7.8 %; Neutrophils # 9.21 10^3/uL (1.8-7.7); Neutrophils % 81.1 %; Nucleated Red Blood Cells % 0 %; Platelet Count 201 10^3/cmm (130-400); Red Blood Count 2.84 10^6/uL (4.1-5.3); Red Cell Distribution Width 13.5 % (12.1-15.1); White Blood Count 11.4 10^3/uL (4.0-10.0)
[2022-02-25 09:42] LABS: Alanine Aminotransferase 56 U/L (0-41); Alkaline Phosphatase 163 U/L (40-130); Anion Gap 12.8 (5-19); Aspartate Amino Transferase 29 U/L (0-40); Blood Urea Nitrogen 11 mg/dL (6-20); Calcium 8.5 mg/dL (8.5-10.5); Carbon Dioxide 23 mmol/L (22-29); Chloride 101 mmol/L (98-107); Globulin 2.8 g/dL (1.3-4.6); Glomerular Filtration Rate 171.4 mL/min (90-130); Glucose 97 mg/dL (65-115); Osmolality Calculated 273 mOsm/kg (285-295); Potassium 4.8 mmol/L (3.5-5.1); Sodium 132 mmol/L (136-145); Total Bilirubin 0.3 mg/dL (0.15-1.2); Total Protein 6.8 g/dL (6.6-8.7)
[2022-02-25] MEDS: dextrose 5% 250 ML 100 ML IV (10:56)
[2022-02-25] MEDS: ondansetron 2 mg/ML SDV 2 mL 8 MG IVP (10:58)
[2022-02-25] MEDS: leucovorin 740 MG in dextrose 5% 250 ML 81 MG IV (11:51)
[2022-02-25] MEDS: fluorouraciL 50 mg/ml MDV 100 mL 750 MG IVP (12:46)
[2022-02-25] MEDS: fluorouraciL 4,450 MG, elastomeric pump 1 PUMP in sodium chloride 0.9% (100 ml) 3 ML IV (12:47)
[2022-02-25 12:50] VITALS: BP 120/76; PULSE 69; RESP 16; TEMP 36.8; O2SAT 98
== END 2022-02-25 23:59 | disposition home or self-care (01) ==
PROVIDERS: Internal Medicine Medical Oncology; Nurse Practitioner; Visit Provider Radiology Radiation Oncology
DX: Z51.11 Encounter for antineoplastic chemotherapy (principal); C15.5 Malignant neoplasm of lower third of esophagus; C79.51 Secondary malignant neoplasm of bone; L27.0 Generalized skin eruption due to drugs and medicaments taken internally; T45.1X5A Adverse effect of antineoplastic and immunosuppressive drugs, initial encounter; Z79.52 Long term (current) use of systemic steroids; M79.604 Pain in right leg; R11.0 Nausea; Z79.899 Other long term (current) drug therapy
CPT/HCPCS: 72192; 80053; 84443; 85025; 96367; 96375; 96409; 96416; J0640; J1100; J2405; J9190

== ENCOUNTER 2022-03-04 17:40 | Observation (INO) | payer OTHER, SELFPAY ==
[2022-03-04 16:47] VITALS: BMI 20.4
[2022-03-04 17:40] VITALS: BP 100/64; PULSE 64; RESP 16; TEMP 36.3; O2SAT 98
--- NOTE | 2022-03-04 17:40 | US_ITS ---
WS: [id number] RIGHT UPPER QUADRANT ULTRASOUND HISTORY: abdominal pain COMPARISON: Prior CT abdomen 11/17/2021 Liver: 16.0 cm in length. Normal size liver. No mass. Moderate central intrahepatic biliary duct dila tation. Portal Vein: Normal hepatopetal flow with monophasic waveform. Gallbladder: Markedly distended gallbladder with a large amount of sludge layering in the lumen. No m ass or stones identified. CBD: 1.1 cm; there are nonshadowing echoes in the distal common bile duct near the pancreatic head. Pancreas: Pancreas is normal size. No pancreatic duct dilatation. Right kidney: 11.3 cm in length. Normal size and echogenicity. No hydronephrosis or mass. Aorta and IVC: Unremarkable abdominal aorta and IVC. No ascites. US/US gall bladder [id number] IMPRESSION: 1. Dilated intrahepatic and extra hepatic biliary ducts. Common bile duct bryson ures up to 1.1 cm. There is also debris noted within the mid to distal common b ile duct. No shadowing stone identified. Choledocholithiasis versus obstructing mass distal common bile duct. ERCP recommended. 2. Markedly distended gallbladder with a large amount of sludge. No intrahepat ic gallstones identified.
--- NOTE | 2022-03-04 17:58 | P.HP_ITS ---
Providers/Chief Complaint Admitting Physician: Ben Falcon MD Chief Complaint: Intolerent to peg tube;esopheageal cancer History of Present Illness Derek Tyler is a 56 year old male presenting with complaints of abdominal pain, left side with tube feedings. I was called by Dr. Still, for consideration of a direct admission. Has been fairly severe in the last several days. He reports that when he initiates feedings, discomfort in his abdomen left side as well as his back will increase. He does have some back discomfort even when he is not giving feedings. He describes the pain is mid back, left side, with radiation around to the front. He has had no vomiting but has been nauseous on occasion. Reports he has been having bowel movements okay. Normally tends towards constipation. No fever. No blood in his stool. Reports he went to [facility] and had a CT scan of his abdomen and pelvis yesterday. They were concerned with gallbladder issues. He is also still unable to swallow. He is wondering if this can be addressed as well. He recently saw a surgeon, and they were considering dilation of his esophagus. This is occurred ever since his diagnosis of esophageal cancer. Review of Systems General: Reports: 10 or more systems reviewed and unremarkable except in HPI and below Const: Denies: fever(s) or chills Eyes: Denies: change in vision ENMT: Reports: other (Unable to swallow); Denies: throat pain Card: Denies: chest pain Resp: Denies: dyspnea GI: Reports: nausea; Denies: abdominal pain, vomiting, hematochezia or melena : Denies: flank pain Musc: Denies: neck pain Skin/Breast: Denies: rash Neuro: Denies: headache(s) Psych: Denies: anxiety or depression Endo: Denies: polyuria Angel/Lymph: Denies: easy bruising All/Imm: Denies: urticaria Medications/Allergies Home Medications Medication Instructions Recorded Confirmed Last Taken Type ibuprofen 200 mg tablet 1,600 mg PO BID PRN Pain 02/05/20 02/25/22 11/12/21 History ondansetron 4 mg disintegrating 4 mg PO Q6H PRN nausea and 10/03/21 02/25/22 Unknown Rx tablet vomiting #30 tabs furosemide 20 mg tablet 20 mg PO DAILY PRN swelling #30 11/05/21 02/25/22 Unknown Rx tabs lidocaine-prilocaine 2.5 %-2.5 % 1 applic topical ONCE #30 grams 11/05/21 02/25/22 Unknown Rx topical cream prednisone 10 mg tablet 10 mg PO DAILY #30 tabs 01/14/22 02/25/22 Unknown Rx morphine concentrate 100 mg/5 mL 20 mg PO Q4H PRN pain 30 days #30 01/28/22 02/25/22 Unknown Rx (20 mg/mL) oral solution mL lorazepam 1 mg tablet See Rx Instructions PO TID PRN 01/29/22 02/25/22 Unknown Rx nausea and vomiting #30 tabs gabapentin 300 mg capsule 300 mg PO TID #90 caps 02/03/22 02/25/22 Unknown Rx hydromorphone 4 mg tablet 4 - 8 mg PO Q6H PRN pain 30 days 02/06/22 02/25/22 Unknown Rx #60 tabs pantoprazole 20 mg tablet,delayed 20 mg PO DAILY #30 tabs 02/09/22 02/25/22 Unknown Rx release (Protonix) dronabinol 5 mg capsule (Marinol) 5 mg PO TID nausea #90 caps 02/25/22 02/25/22 Unknown Rx Allergies Allergy/AdvReac Type Severity Reaction Status Date / Time No Known Allergies Allergy Verified 02/25/22 10:01 PFSH Acute PFSH: Medical History Esophageal cancer Surgical History H/O esophagogastroduodenoscopy (11/14/21) Hx of appendectomy S/P percutaneous endoscopic gastrostomy (PEG) tube placement (10/01/21) laparoscopic gastrostomy open gastrostomy tube placement 10/03/2021 Family History Father Chronic kidney disease (CKD) Hypertension Mother Cancer Lung cancer Denies family history of Diabetes CAD (coronary artery disease) Clotting disorder Dementia Hyperlipidemia Psychiatric illness Suicide Anesthesia complication Bleeding disorder Lung disease Stroke Social History Smoking and tobacco status: current every day smoker cigarettes Packs smoked per day: 1 Alcohol intake: former Physical Exam Narrative: General exam is a white male in no apparent distress HEENT: Atraumatic normocephalic. Oropharynx clear. Neck is supple no lymphadenopathy or thyromegaly Cardiovascular regular rate and rhythm without murmur Lungs clear no wheezing or crackles. Diminished breath sounds are noted bilaterally Abdomen is soft. Positive bowel sounds. No tenderness. No organomegaly. PEG tube is noted. exam is deferred Extremities no cyanosis clubbing or edema. Cap refill brisk Skin no rash Neuro no obvious focal deficits. A&P Assessment and plan (1) Abdominal pain: Patient reports concern with back pain, left upper quadrant pain with tube feedings. Consult surgery for evaluation of PEG tube Recent CT scan of abdomen pelvis at [facility] yesterday had concern of gallstones. This does not seem to be related but there was concern of dilation of common bile duct and possible choledocholithiasis. No tube feedings for now Hydrate with IV fluids Status: Acute (2) Cholelithiasis: Check gallbladder ultrasound Baseline laboratory including liver function tests Surgery consultation Status: Acute (3) Dysphagia: Patient reports recently seeing Dr. Argueta for consideration of EGD with dilation. He has questions regarding this. Status: Acute (4) Esophageal adenocarcinoma: Status: Acute Plan Other medical problems as delineated by his past medical history Allow natural Lovenox for DVT prophylaxis Attestations Medical Necessity Statement*: Will need less than 2 midnight stay for evaluation and treatment of abdominal pain. Coding Level of Care Code Acute Heavy Equipment Service Manager for [facility] Fwd Diagnoses Abdominal pain R10.9 Cholelithiasis K80.20 Dysphagia R13.10 Esophageal adenocarcinoma C15.9
[2022-03-04] MEDS: enoxaparin 40 mg/0.4 mL Syringe SUBCUT (18:31)
[2022-03-04 19:41] LABS: Basophils % 0.4 %; Eosinophils # 0.1 10^3/uL (0.0-0.8); Eosinophils % 2.6 %; Hematocrit 33.1 % (42.0-52.0); Hemoglobin 11.1 g/dL (11.7-16.6); Lymphocytes # 1.5 10^3/uL (0.8-4.8); Lymphocytes % 29.6 %; Mean Corpuscular HGB Conc 33.5 g/dL (30.0-36.0); Mean Corpuscular Hemoglobin 39.1 pg (28.0-34.0); Mean Corpuscular Volume 116.5 fl (80-94); Monocytes # 0.4 10^3/uL (0.2-0.9); Monocytes % 8.5 %; Neutrophils # 2.86 10^3/uL (1.8-7.7); Neutrophils % 57.7 %; Nucleated Red Blood Cells % 0 %; Platelet Count 216 10^3/cmm (130-400); Red Blood Count 2.84 10^6/uL (4.1-5.3); Red Cell Distribution Width 13.1 % (12.1-15.1)
[2022-03-04 19:57] LABS: Alanine Aminotransferase 155 U/L (0-41); Albumin Level 4.3 g/dL (3.5-5.2); Alkaline Phosphatase 150 U/L (40-130); Anion Gap 13.1 (5-19); Aspartate Amino Transferase 77 U/L (0-40); Blood Urea Nitrogen 18 mg/dL (6-20); Calcium 8.2 mg/dL (8.5-10.5); Carbon Dioxide 24 mmol/L (22-29); Chloride 101 mmol/L (98-107); Globulin 2.5 g/dL (1.3-4.6); Glomerular Filtration Rate 171.4 mL/min (90-130); Glucose 82 mg/dL (65-115); Magnesium 2.1 mg/dL (1.7-2.3); Osmolality Calculated 279 mOsm/kg (285-295); Potassium 4.1 mmol/L (3.5-5.1); Sodium 134 mmol/L (136-145); Total Bilirubin 0.7 mg/dL (0.15-1.2); Total Protein 6.8 g/dL (6.6-8.7)
[2022-03-04 20:00] VITALS: BP 101/67; PULSE 69; RESP 14; TEMP 36.4; O2SAT 96
[2022-03-04 20:19] VITALS: PULSE 63; O2SAT 92
[2022-03-04] MEDS: pantoprazole 40 mg SDV IVP (21:04)
[2022-03-04] MEDS: sodium chloride 0.9% 1,000 ML 75 ML IV (21:05)
[2022-03-04] MEDS: gabapentin 300 mg Capsule PEG-TUBE (21:05)
[2022-03-05] VITALS: BP 92/50; PULSE 61; RESP 14; TEMP 36.9; O2SAT 92
[2022-03-05 04:00] VITALS: BP 100/55; PULSE 61; RESP 14; TEMP 36.9; O2SAT 91
[2022-03-05 06:46] LABS: Folate Level > 20.0 ng/mL (4.5-32.2)
[2022-03-05 07:46] LABS: Vitamin B12 > 2000 pg/mL (232-1245)
[2022-03-05 08:00] VITALS: BP 105/66; PULSE 56; PULSE 68; RESP 14; TEMP 36.6; O2SAT 93; O2SAT 97
[2022-03-05] MEDS: nicotine 21 mg Patch 1 PATCH TRANSDERMA (09:29)
[2022-03-05] MEDS: gabapentin 300 mg Capsule PEG-TUBE (09:30)
[2022-03-05] MEDS: nicotine 2 mg Gum 4 MG BUCCAL (09:31)
--- NOTE | 2022-03-05 09:53 | P.DS_ITS ---
Discharge Providers Date of Admission: 03/04/22 17:40 Date of Discharge: March 05, 2022 Attending Provider at Admission: Ben Falcon MD Attending Provider at Discharge: Ben Falcon MD Diagnoses at Discharge Discharge Diagnosis (1) Abdominal pain: Status: Acute (2) Cholelithiasis: Status: Acute (3) Dysphagia: Status: Acute (4) Esophageal adenocarcinoma: Status: Acute Reason for Visit Reason for Visit: Intolerent to peg tube;esopheageal cancer Hospital Course Hospital Course Derek presented as a direct admission for concern of abdominal discomfort, mainly on the left side with need for evaluation of his PEG tube. There was some concern he was unable to tolerate feedings. When I talked with the patient he reported some discomfort with feedings, but he was still able to give himself full feedings. He is also able to take some liquid by mouth, and pills although this is very limited. There has been concern lately that he may need an esophageal dilation for stricture. He has history of esophageal cancer for which he has received treatment through Dr. Still. He had recently been in the emergency department in [place], where he received a CT scan demonstrating possible choledocholithiasis. Ultrasound here demonstrated dilated intra perihepatic and extrahepatic ducts with common bile duct of 1.1 cm with debris in the mid to distal common duct. There was concern of choledocholithiasis versus obstructing mass and ERCP was recommended. Gallbladder was distended. Sludge was identified. Liver function test demonstrated AST and ALT elevations of 77 and 155 as well as an alk phos of 150. Total bilirubin was normal at 0.7. Surgery saw the patient, and believed ERCP was also needed, and esophageal dilation could occur at that time. Surgery believed this could be accommodated outpatient as that was the patient's desire. I discussed with the patient, and he did request discharge. I called GI services at [facility], and discussed with him the situation. They reported they would be giving him a call later this week and at the latest Wednesday for arrangement of evaluation. He was instructed should he have any fever, worsening pain, jaundice he should return immediately. He did not have definite evidence of fever, jaundice, or worsening pain here at the hospital. Physical Exam Narrative: General exam is no apparent distress Neck is supple Cardiovascular regular rate and rhythm without murmur Lungs clear Abdomen is soft. No significant tenderness to palpation. Bowel sounds are noted. PEG tube noted. Extremities no cyanosis clubbing or edema Discharge Data Studies Completed and Pending Completed Studies During Hospitalization Category Date Time Status US gall bladder [id number] Routine Ultrasound 03/04/22 17:40 Completed Radiology Impressions Gallbladder Ultrasound 03/04/22 17:40 IMPRESSION: 1. Dilated intrahepatic and extra hepatic biliary ducts. Common bile duct measures up to 1.1 cm. There is also debris noted within the mid to distal common bile duct. No shadowing stone identified. Choledocholithiasis versus obstructing mass distal common bile duct. ERCP recommended. 2. Markedly distended gallbladder with a large amount of sludge. No intrahepatic gallstones identified. Laboratory Results WBC 5.0 10^3/uL (4.0-10.0) 03/04/22 19:05 RBC 2.84 10^6/uL (4.1-5.3) L 03/04/22 19:05 Hgb 11.1 g/dL (11.7-16.6) L 03/04/22 19:05 Hct 33.1 % (42.0-52.0) L 03/04/22 19:05 MCV 116.5 fl (80-94) H 03/04/22 19:05 MCH 39.1 pg (28.0-34.0) H 03/04/22 19:05 MCHC 33.5 g/dL (30.0-36.0) 03/04/22 19:05 RDW 13.1 % (12.1-15.1) 03/04/22 19:05 Plt Count 216 10^3/cmm (130-400) 03/04/22 19:05 MPV 10.0 fL (7.4-10.4) 03/04/22 19:05 Neut % (Auto) 57.7 % 03/04/22 19:05 Lymph % (Auto) 29.6 % 03/04/22 19:05 [place] % (Auto) 8.5 % 03/04/22 19:05 Eos % (Auto) 2.6 % 03/04/22 19:05 Baso % (Auto) 0.4 % 03/04/22 19:05 Neut # (Auto) 2.86 10^3/uL (1.8-7.7) 03/04/22 19:05 Lymph # (Auto) 1.5 10^3/uL (0.8-4.8) 03/04/22 19:05 [place] # (Auto) 0.4 10^3/uL (0.2-0.9) 03/04/22 19:05 Eos # (Auto) 0.1 10^3/uL (0.0-0.8) 03/04/22 19:05 Baso # (Auto) 0.0 10^3/uL (0.0-0.1) 03/04/22 19:05 Nucleated RBC % (auto) 0 % 03/04/22 19:05 Nucleated RBCs # 0.0 /100WBC 03/04/22 19:05 Sodium 134 mmol/L (136-145) L 03/04/22 19:05 Potassium 4.1 mmol/L (3.5-5.1) 03/04/22 19:05 Chloride 101 mmol/L (98-107) 03/04/22 19:05 Carbon Dioxide 24 mmol/L (22-29) 03/04/22 19:05 Anion Gap 13.1 (5-19) 03/04/22 19:05 BUN 18 mg/dL (6-20) 03/04/22 19:05 Creatinine 0.5 mg/dL (0.7-1.2) L 03/04/22 19:05 GFR Calculation 171.4 mL/min (90-130) H 03/04/22 19:05 Glucose 82 mg/dL (65-115) 03/04/22 19:05 Calculated Osmolality 279 mOsm/kg (285-295) L 03/04/22 19:05 Calcium 8.2 mg/dL (8.5-10.5) L 03/04/22 19:05 Magnesium 2.1 mg/dL (1.7-2.3) 03/04/22 19:05 Total Bilirubin 0.7 mg/dL (0.15-1.2) 03/04/22 19:05 AST 77 U/L (0-40) H 03/04/22 19:05 ALT 155 U/L (0-41) H 03/04/22 19:05 Alkaline Phosphatase 150 U/L (40-130) H 03/04/22 19:05 Total Protein 6.8 g/dL (6.6-8.7) 03/04/22 19:05 Albumin 4.3 g/dL (3.5-5.2) 03/04/22 19:05 Globulin 2.5 g/dL (1.3-4.6) 03/04/22 19:05 Vitamin B12 > 2000 pg/mL (232-1245) H 03/04/22 19:05 Folate > 20.0 ng/mL (4.5-32.2) 03/05/22 02:14 TSH 1.30 uIU/mL (0.27-4.20) 03/04/22 19:05 Vitals Last Vital Signs Temp 97.8 F 03/05/22 08:00 Pulse 68 03/05/22 08:00 Resp 14 03/05/22 08:00 BP 105/66 03/05/22 08:00 Pulse Ox 93 03/05/22 08:00 O2 Del Method 03/05/22 08:00 Discharge Plan Discharge Patient Disposition: Home Condition: Stable Prescriptions: Continued dronabinol [Marinol] 5 mg capsule 5 mg PO TID Qty: 90 0RF furosemide 20 mg tablet 20 mg PO DAILY PRN (Reason: swelling) Qty: 30 0RF lidocaine-prilocaine 2.5-2.5 % cream 1 applic topical ONCE Qty: 30 3RF Rx Instructions: Apply 1 hour prior to port access prednisone 10 mg tablet 10 mg PO DAILY Qty: 30 2RF morphine concentrate 100 mg/5 mL (20 mg/mL) solution 20 mg PO Q4H PRN (Reason: pain) 30 Days Qty: 30 0RF lorazepam 1 mg tablet See Rx Instructions PO TID PRN (Reason: nausea and vomiting) Qty: 30 0RF Rx Instructions: 0.5-1 tablets orally three times daily PRN; gabapentin 300 mg capsule 300 mg PO TID Qty: 90 0RF hydromorphone 4 mg tablet 4 - 8 mg PO Q6H PRN (Reason: pain) 30 Days Qty: 60 0RF pantoprazole [Protonix] 20 mg tablet,delayed release (DR/EC) 20 mg PO DAILY Qty: 30 3RF ibuprofen 200 mg Tablet 1,600 mg PO BID PRN (Reason: Pain) ondansetron 4 mg tablet,disintegrating 4 mg PO Q6H PRN (Reason: nausea and vomiting) Qty: 30 2RF Discharge Orders: Discharge Order (Routine); Ordered 03/05/22 Ordered By: Ben Falcon Referrals: Allen Still MD [Hospitalist] - 03/16/22 10:30 am Discharge Diet: Usual diet Discharge Activity: Increase activity as tolerated Patient Instructions: Cholelithiasis, Esophageal Cancer (GEN), Opioid Safety Activity Restrictions/Additional Instructions: Take all medicine as prescribed [facility] is suppose to call in the next 3 working days to set up your procedure. Please call the GI clinic there if this does not happen. Return for any fever, increasing pain, increasing nausea, jaundice Discharge Attestations Time Spent in Discharge Care*: greater than 30 min Quality Metrics Clinical Quality Measures [ No reported AMI, CVA or VTE this stay] Coding Level of Care Code Acute Chg FW DC note Diagnoses Abdominal pain R10.9 Cholelithiasis K80.20 Dysphagia R13.10 Esophageal adenocarcinoma C15.9
--- NOTE | 2022-03-05 10:09 | PM.CONSULT ---
Providers/Reason For Consult Consulting Physician/Specialty*: Dr. Manuel Argueta/ Reason for Consult*: Abdominal pain Attending Physician: Ben Falcon MD History of Present Illness History of Present Illness Derek Tyler is a 56 year old male with known esophageal adenocarcinoma, who presented to the hospital with abdominal pain. He reports that his pain is mostly in his back and wrapping around his left side, but also in his epigastrium and right upper quadrant. The pain is dull and constant. He has a PEG tube in place. He reports that getting bolus feeds through his PEG tube increases pain. Nothing seems to make it better. He is unable to take anything orally due to his esophageal carcinoma. Ultrasound of the abdomen revealed obstruction of the common bile duct with dilation and possible mass. Bilirubin is normal. He is scheduled for repeat EGD with possible balloon dilation so that he can take food orally. Review of Systems General: Reports: 10 or more systems reviewed and unremarkable except in HPI and below Medications/Allergies Home Medications Medication Instructions Recorded Confirmed Last Taken Type ibuprofen 200 mg tablet 1,600 mg PO BID PRN Pain 02/05/20 02/25/22 11/12/21 History ondansetron 4 mg disintegrating 4 mg PO Q6H PRN nausea and 10/03/21 02/25/22 Unknown Rx tablet vomiting #30 tabs furosemide 20 mg tablet 20 mg PO DAILY PRN swelling #30 11/05/21 02/25/22 Unknown Rx tabs lidocaine-prilocaine 2.5 %-2.5 % 1 applic topical ONCE #30 grams 11/05/21 02/25/22 Unknown Rx topical cream prednisone 10 mg tablet 10 mg PO DAILY #30 tabs 01/14/22 02/25/22 Unknown Rx morphine concentrate 100 mg/5 mL 20 mg PO Q4H PRN pain 30 days #30 01/28/22 02/25/22 Unknown Rx (20 mg/mL) oral solution mL lorazepam 1 mg tablet See Rx Instructions PO TID PRN 01/29/22 02/25/22 Unknown Rx nausea and vomiting #30 tabs gabapentin 300 mg capsule 300 mg PO TID #90 caps 02/03/22 02/25/22 Unknown Rx hydromorphone 4 mg tablet 4 - 8 mg PO Q6H PRN pain 30 days 02/06/22 02/25/22 Unknown Rx #60 tabs pantoprazole 20 mg tablet,delayed 20 mg PO DAILY #30 tabs 02/09/22 02/25/22 Unknown Rx release (Protonix) dronabinol 5 mg capsule (Marinol) 5 mg PO TID nausea #90 caps 02/25/22 02/25/22 Unknown Rx Allergies Allergy/AdvReac Type Severity Reaction Status Date / Time No Known Allergies Allergy Verified 02/25/22 10:01 Current Medications Generic Name Dose Route Start Last Admin Trade Name Freq PRN Reason Stop Dose Admin Enoxaparin Sodium 40 mg 03/04/22 18:30 03/04/22 18:31 Enoxaparin 40 Mg/0.4 Ml Syringe SUBCUT 40 mg Q24H EMELI Administration Gabapentin 300 mg 03/04/22 21:00 03/05/22 09:30 Gabapentin 300 Mg Capsule PEG-TUBE 300 mg TID EMELI Administration Sodium Chloride 1,000 mls @ 75 mls/hr 03/04/22 17:45 03/04/22 21:05 Sodium Chloride 0.9% IV 75 mls/hr .[id number] EMELI Administration Nicotine 1 patch 03/05/22 09:00 03/05/22 09:29 Nicotine 21 Mg Patch TRANSDERMA 1 patch DAILY EMELI Administration Nicotine Polacrilex 4 mg 03/05/22 08:27 03/05/22 09:31 Nicotine 2 Mg Gum BUCCAL 4 mg Q2H PRN Administration NICOTINE CRAVINGS Pantoprazole Sodium 40 mg 03/04/22 17:45 03/04/22 21:04 Pantoprazole 40 Mg Sdv IVP 40 mg Q24H EMELI Administration PFSH Acute PFSH: Medical History Esophageal cancer Surgical History H/O esophagogastroduodenoscopy (11/14/21) Hx of appendectomy S/P percutaneous endoscopic gastrostomy (PEG) tube placement (10/01/21) laparoscopic gastrostomy open gastrostomy tube placement 10/03/2021 Family History Father Chronic kidney disease (CKD) Hypertension Mother Cancer Lung cancer Denies family history of Diabetes CAD (coronary artery disease) Clotting disorder Dementia Hyperlipidemia Psychiatric illness Suicide Anesthesia complication Bleeding disorder Lung disease Stroke Social History Smoking and tobacco status: current every day smoker cigarettes Packs smoked per day: 1 Alcohol intake: former Vitals/I&O/Wt Last Vital Signs Temp 97.8 F 03/05/22 08:00 Pulse 68 03/05/22 08:00 Resp 14 03/05/22 08:00 BP 105/66 03/05/22 08:00 Pulse Ox 93 03/05/22 08:00 O2 Del Method 03/05/22 08:00 03/04/22 03/05/22 03/05/22 22:59 06:59 14:59 Intake Total 0 / 0 Output Total 0 / 0 Balance 0 / 0 Weight last 48 hrs Weight 150 lb 6.4 oz Physical Exam Narrative: General : Patient is well developed , no acute distress, oriented x3 Head : Normal cephalic, a-traumatic. Ears : Pinnae and external canal are normal. Hearing is normal. Eyes : PERRLA, Sclera and injection are normal. No conjunctival discharge. Nose : Mucous membranes are without erythema. Throat : buccal mucosa is normal, gums are without significant recession or hypertrophy. Lungs : Equal chest rise bilaterally, no use of accessory muscles, trachea is midline. Cor : Rate and rhythm are normal. Abdomen : Soft, ND, NT, no g/r/m, PEG tube intact without erythema or exudate Extremities : No edema, no cyanosis or clubbing, dorsalis pedis pulses are present bilaterally, non-tender to palpation of calves. Upper extremities are normal bilaterally. Back : non-tender to palpation, no CVA tenderness. Neuro : CN II - XII intact, Upper and lower extremities have equal and full strength Data : 03/04/22 19:05 03/04/22 19:05 A&P Assessment and plan (1) Abdominal pain: Status: Acute (2) Esophageal adenocarcinoma: Status: Acute (3) Common bile duct obstruction: Status: Acute Plan Patient would like to be discharged. I recommend ERCP with possible balloon dilation of esophagus at that time. Surgically stable for discharge. No acute surgical intervention Coding Level of Care Code Acute [facility] for [facility] Diagnoses Abdominal pain R10.9 Esophageal adenocarcinoma C15.9 Common bile duct obstruction K83.1
--- NOTE | 2022-03-05 10:32 | PC.CHAP ---
Pastoral Care Encounter/Spiritual Assessment Type of Contact [] Declined tool and die manager visit [] Patient/Family/Request visit [] Outpatient visit [] Follow-up visit [] Physician referral [] Code/Alert [x] Routine visit [] Staff referral [] Actively dying [] Patient sleeping [] Family support [] [] Out of room [] Palliative care [] [x] Receiving care in room [] Pre-surgical visit [] Trauma [] Long length of stay [] ICU visit [] Other: Relational/Emotional Strength [x] Patient feels connected with others/family/visitors/staff [] Distress [] Loneliness/isolation [] Abandonment Spirituality of Patient [x] Person of [place] [] Attends Sikh of their [place] [] Believes in Prayer [] Reads Bible or Baptism materials [] There are Spiritual issues to be addressed [place] Interventions [x] Prayer [x] Active listening [x] Non-anxious presence [x] Spiritual/emotional support [] Crisis/trauma care [x] Spiritual counseling [] Bereavement support [] Provided bereavement packet [] Provided Bible/devotional materials [] Provided toy/stuffed animal, coloring book to patient or family member [] Provided Communion [] Anointing/[place] [] Salvation [x] Completed spiritual assessment [] Other: Impact on Illness or Injury [] Angry [] Fearful [x] Anxious [] Often cries [] Exhaustion [] Unable to work [] Unable to attend buddhist [] Unable to walk/stand [] Unable to read [] Unable to drive [] Unable to eat/drink [] Unable to sleep [] Unable to be with family [] Patient intubated [] Other: Summary stomk doesn't know about what needs to be done has a good attitude +1 will go home soon Time spent with patient 10 mins
== END 2022-03-05 11:12 | disposition home or self-care (01) ==
PROVIDERS: Admitting Provider Internal Medicine; Visit Provider Internal Medicine
DX: R10.12 Left upper quadrant pain (principal); R13.10 Dysphagia, unspecified; K83.1 Obstruction of bile duct; C15.9 Malignant neoplasm of esophagus, unspecified; F17.210 Nicotine dependence, cigarettes, uncomplicated; Z88.5 Allergy status to narcotic agent; Z93.1 Gastrostomy status
CPT/HCPCS: 36415; 76705; 80053; 82607; 82746; 83735; 84443; 85025; 96372; C9113; G0378; G0379; J1650; J7030

== ENCOUNTER 2022-03-16 10:21 | Oncology outpatient (recurring) (ONCR) | payer OTHER, SELFPAY ==
[2022-03-16 11:56] LABS: Basophils % 0.4 %; Eosinophils # 0.2 10^3/uL (0.0-0.8); Eosinophils % 4.4 %; Hematocrit 33.5 % (42.0-52.0); Hemoglobin 11.5 g/dL (11.7-16.6); Lymphocytes % 18.9 %; Mean Corpuscular HGB Conc 34.3 g/dL (30.0-36.0); Mean Corpuscular Hemoglobin 39.2 pg (28.0-34.0); Mean Corpuscular Volume 114.3 fl (80-94); Mean Platelet Volume 10.7 fL (7.4-10.4); Monocytes # 0.6 10^3/uL (0.2-0.9); Monocytes % 11.8 %; Neutrophils # 3.47 10^3/uL (1.8-7.7); Neutrophils % 63.8 %; Nucleated Red Blood Cells % 0 %; Platelet Count 225 10^3/cmm (130-400); Red Blood Count 2.93 10^6/uL (4.1-5.3); Red Cell Distribution Width 14.1 % (12.1-15.1); White Blood Count 5.4 10^3/uL (4.0-10.0)
[2022-03-16 13:15] LABS: Alanine Aminotransferase 272 U/L (0-41); Albumin Level 3.9 g/dL (3.5-5.2); Alkaline Phosphatase 263 U/L (40-130); Anion Gap 16.8 (5-19); Aspartate Amino Transferase 143 U/L (0-40); Blood Urea Nitrogen 17 mg/dL (6-20); Carbon Dioxide 22 mmol/L (22-29); Chloride 100 mmol/L (98-107); Globulin 3.1 g/dL (1.3-4.6); Glucose 75 mg/dL (65-115); Osmolality Calculated 280 mOsm/kg (285-295); Potassium 3.8 mmol/L (3.5-5.1); Sodium 135 mmol/L (136-145); Total Bilirubin 6.9 mg/dL (0.15-1.2)
== END 2022-03-27 23:59 | disposition home or self-care (01) ==
PROVIDERS: Internal Medicine Medical Oncology; Visit Provider Radiology Radiation Oncology
DX: C15.9 Malignant neoplasm of esophagus, unspecified (principal)
CPT/HCPCS: 80053; 85025

== ENCOUNTER 2022-04-15 13:30 | Oncology outpatient (recurring) (ONCR) | payer OTHER, SELFPAY ==
[2022-03-30] MEDS: sodium chloride 0.9% 1,000 ML 999 ML IV (15:33)
[2022-03-30] MEDS: ondansetron 2 mg/ML SDV 2 mL 8 MG IVP (15:36)
[2022-03-30 16:00] LABS: Basophils % 0.3 %; Eosinophils # 0.1 10^3/uL (0.0-0.8); Eosinophils % 1.8 %; Hematocrit 23.8 % (42.0-52.0); Hemoglobin 8.3 g/dL (11.7-16.6); Lymphocytes # 0.8 10^3/uL (0.8-4.8); Lymphocytes % 12.1 %; Mean Corpuscular HGB Conc 34.9 g/dL (30.0-36.0); Mean Corpuscular Hemoglobin 37.7 pg (28.0-34.0); Mean Corpuscular Volume 108.2 fl (80-94); Monocytes # 0.7 10^3/uL (0.2-0.9); Monocytes % 10.7 %; Neutrophils # 5.11 10^3/uL (1.8-7.7); Neutrophils % 74.5 %; Nucleated Red Blood Cells % 0 %; Platelet Count 317 10^3/cmm (130-400); Red Cell Distribution Width 13.3 % (12.1-15.1); White Blood Count 6.9 10^3/uL (4.0-10.0)
[2022-03-30 16:25] LABS: Alanine Aminotransferase 41 U/L (0-41); Albumin Level 2.8 g/dL (3.5-5.2); Alkaline Phosphatase 167 U/L (40-130); Anion Gap 10.3 (5-19); Aspartate Amino Transferase 19 U/L (0-40); Blood Urea Nitrogen 16 mg/dL (6-20); Calcium 8.3 mg/dL (8.5-10.5); Carbon Dioxide 28 mmol/L (22-29); Chloride 94 mmol/L (98-107); Globulin 2.8 g/dL (1.3-4.6); Glomerular Filtration Rate 493.4 mL/min (90-130); Glucose 96 mg/dL (65-115); Osmolality Calculated 269 mOsm/kg (285-295); Potassium 3.3 mmol/L (3.5-5.1); Sodium 129 mmol/L (136-145); Total Bilirubin 6.1 mg/dL (0.15-1.2); Total Protein 5.6 g/dL (6.6-8.7)
[2022-03-31 11:25] LABS: Total Iron Binding Capacity 208 mcg/dl; Unsaturated Iron Binding 181 ug/dL (112-347)
[2022-03-31 11:55] LABS: Iron 27 ug/dL (59-158); Percent Saturation 12.9 % (20-50); Vitamin B12 > 2000 pg/mL (232-1245)
[2022-04-01 14:00] VITALS: RESP 18
[2022-04-01] MEDS: sodium chloride 0.9% 1,000 ML 999 ML IV (14:00)
[2022-04-01] MEDS: morphine 4 mg/mL SDV 1 mL IVP ×3 (14:00→15:56)
[2022-04-01 15:17] VITALS: RESP 20
[2022-04-01] MEDS: ondansetron 2 mg/ML SDV 2 mL 8 MG IVP (15:41)
[2022-04-01 15:56] VITALS: RESP 18
[2022-04-06] MEDS: sodium chloride 0.9% 1,000 ML 999 ML IV (11:46)
[2022-04-06] MEDS: ondansetron 2 mg/ML SDV 2 mL 8 MG IVP (13:22)
[2022-04-06 16:18] VITALS: BP 134/77; PULSE 68; RESP 16; TEMP 36.6; O2SAT 96
[2022-04-07] MEDS: sodium chloride 0.9% 1,000 ML 999 ML IV (11:31)
[2022-04-07] MEDS: ondansetron 2 mg/ML SDV 2 mL 8 MG IVP (11:39)
[2022-04-07 13:00] VITALS: BP 120/79; PULSE 86; RESP 18; TEMP 36.8; O2SAT 99
[2022-04-15] MEDS: famotidine 20 mg/2 mL INJ IVP (12:48)
[2022-04-15] MEDS: ondansetron 2 mg/ML SDV 2 mL 8 MG IVP (12:48)
[2022-04-15] MEDS: sodium chloride 0.9% 1,000 ML 999 ML IV (12:48)
[2022-04-15] MEDS: HYDROmorphone 1 mg/mL INJ 1 mL 2 MG IVP (12:52)
[2022-04-15 16:15] VITALS: BP 112/64; PULSE 64; RESP 18; TEMP 36.3; O2SAT 98
== END 2022-04-27 23:59 | disposition home or self-care (01) ==
PROVIDERS: Visit Provider Internal Medicine Medical Oncology
DX: Z53.9 Procedure and treatment not carried out, unspecified reason (principal); C79.51 Secondary malignant neoplasm of bone; Z79.52 Long term (current) use of systemic steroids; C15.5 Malignant neoplasm of lower third of esophagus
CPT/HCPCS: 36415; 80053; 82607; 83540; 83550; 85025; 96360; 96361; 96365; 96367; 96375; J1100; J1170; J2270; J2405; J3490; J7030